=== PATIENT | female | born 1975 | race American Indian/Alaskan Native ===

== ENCOUNTER 2021-10-12 21:11 | Inpatient (IN) | payer MEDICAID ==
[2021-10-12] MEDS ORDERED: VANCOMYCIN 0 MG in SODIUM CHLORIDE 0.9% 500 ML 500 ML IV ONE (22:11)
[2021-10-12] MEDS ORDERED: HYDROmorphone 0.5 MG/0.5 ML INJ IV PRN (22:11)
[2021-10-12] MEDS ORDERED: ACETAMINOPHEN 325 MG TAB PO PRN (22:11)
[2021-10-12] MEDS ORDERED: ACETAMINOPHEN 650 MG RECT SUPP PR ONE (22:23)
--- NOTE | 2021-10-12 22:24 | Emergency Department Report ---
ED Fever HPI - General Chief Complaint: Arrhythmia/Palpitations Stated Complaint: TACHYCARDIA Time Seen by Provider: 10/12/21 22:11 - History of Present Illness Initial Comments: Patient is a 45-year-old female sent from intermediate for evaluation of fever and tachycardia. History of advanced multiple sclerosis and is bedbound. She has several known decubitus ulcers on her sacral region and and hip. 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 ED Review of Systems ROS: Stated complaint: TACHYCARDIA Other details as noted in HPI Comment: Unobtainable due to pts medical conditions ED Past Medical Hx - Social History Smoking Status: Unknown if ever smoked ED Physical Exam - General Limitations: Physical Limitation - Head Head exam: Present: atraumatic, normocephalic - Eye Eye exam: Present: normal appearance, PERRL, EOMI - ENT ENT exam: Present: mucous membranes dry - Respiratory Respiratory exam: Present: normal lung sounds bilaterally. Absent: respiratory distress - Cardiovascular Cardiovascular Exam: Present: normal rhythm, tachycardia, normal heart sounds - GI/Abdominal GI/Abdominal exam: Present: soft. 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 This is reportedly her baseline.) - Skin Skin exam: Present: warm, dry, normal color, other (Sacral decubitus ulcers present with dressings) ED Course Vital Signs 10/12/21 10/12/21 10/12/21 22:05 22:09 22:16 Temperature 103.7 F H Pulse Rate 130 H 124 H Respiratory 24 26 H 25 H Rate Blood Pressure 102/71 Blood Pressure 108/69 [Left] O2 Sat by Pulse 98 96 Oximetry 10/12/21 10/12/21 10/12/21 22:20 22:30 22:46 Temperature Pulse Rate 123 H 128 H Respiratory 22 18 Rate Blood Pressure 102/71 105/71 Blood Pressure [Left] O2 Sat by Pulse 98 96 98 Oximetry 10/12/21 10/12/21 10/12/21 23:00 23:16 23:30 Temperature Pulse Rate 115 H 117 H 108 H Respiratory 20 20 22 Rate Blood Pressure 105/71 96/61 96/61 Blood Pressure [Left] O2 Sat by Pulse 96 97 97 Oximetry 10/12/21 10/13/21 10/13/21 23:46 00:00 00:16 Temperature Pulse Rate 107 H 104 H 106 H Respiratory 20 20 22 Rate Blood Pressure 89/52 89/52 87/50 Blood Pressure [Left] O2 Sat by Pulse 96 97 99 Oximetry 10/13/21 10/13/21 10/13/21 00:30 00:46 01:00 Temperature Pulse Rate 103 H 102 H 98 H Respiratory 19 19 22 Rate Blood Pressure 87/50 92/58 92/58 Blood Pressure [Left] O2 Sat by Pulse 99 99 100 Oximetry 10/13/21 10/13/21 10/13/21 01:02 01:16 01:30 Temperature 98.8 F Pulse Rate 91 H 91 H Respiratory 20 16 Rate Blood Pressure 78/52 78/52 Blood Pressure [Left] O2 Sat by Pulse 98 99 Oximetry 10/13/21 10/13/21 10/13/21 01:46 02:00 02:16 Temperature Pulse Rate 90 87 92 H Respiratory 18 16 20 Rate Blood Pressure 79/49 79/49 76/51 Blood Pressure [Left] O2 Sat by Pulse 100 100 76 L Oximetry 10/13/21 10/13/21 10/13/21 02:30 02:46 02:55 Temperature Pulse Rate 87 89 85 Respiratory 15 21 16 Rate Blood Pressure 76/51 87/54 Blood Pressure 92/58 [Left] O2 Sat by Pulse 100 100 96 Oximetry 10/13/21 10/13/21 10/13/21 03:00 03:16 03:30 Temperature Pulse Rate 82 91 H 78 Respiratory 15 21 17 Rate Blood Pressure 92/58 89/56 89/56 Blood Pressure [Left] O2 Sat by Pulse 100 100 100 Oximetry ED Medical Decision Making - Lab Data Result diagrams: 10/12/21 23:11 10/12/21 23:11 - Medical Decision Making Patient brought in from intermediate for tachycardia and fever. Temp 103 on arrival. She was also tachycardic in the 130s. EKG shows junctional tachycardia. Patient given IV fluids and antibiotics per sepsis protocol. Labs reveal UTI with greater than 182 WBCs, nitrite positive. Patient is allergic to penicillins. She was given IV Levaquin and vancomycin. She was also given rectal Tylenol for her fever. Coronavirus PCR pending. Chest x-ray is negative. Suspect likely UTI as source of sepsis. Will admit to hospitalist. Critical care attestation.: If time is entered above; I have spent that time in minutes in the direct care of this critically ill patient, excluding procedure time. ED Disposition Clinical Impression: Sepsis due to urinary tract infection Disposition: ADMITTED INPATIENT Is pt being admited?: Yes Condition: Stable
[2021-10-12] MEDS ORDERED: VANCOMYCIN/NS 1 GM/250 ML 1 GM/250 ML BAG IV ONE (22:30)
[2021-10-12] MEDS: SODIUM CHLORIDE 0.9% 1000 ML IV SOLN IV ONE (22:39)
--- NOTE | 2021-10-12 22:55 | XRay Report ---
CHEST 1 VIEW 10/12/2021 10:37 PM INDICATION / CLINICAL INFORMATION: Fever, SIRS. COMPARISON: None available. FINDINGS: SUPPORT DEVICES: None. HEART / MEDIASTINUM: No significant abnormality. LUNGS / PLEURA: No significant pulmonary or pleural abnormality. No pneumothorax. ADDITIONAL FINDINGS: No significant additional findings. IMPRESSION: 1. No acute findings. Signer Name: Ezekiel Horan MD Signed: 10/12/2021 10:51 PM Workstation Name: [id number]
[2021-10-12] MEDS ORDERED: VANCOMYCIN PHARMACY TO DOSE IV SCH (23:00)
[2021-10-12 23:25] LABS: Basophils % (Auto) 0.3 % (0.0-1.8); Hematocrit 27.4 % (30.3-42.9); Hemoglobin 8.6 gm/dl (10.1-14.3); Lymphocytes # (Auto) 1.5 K/mm3 (1.2-5.4); Lymphocytes % (Auto) 13.2 % (13.4-35.0); Mean Corpuscular HGB Conc 32 % (30-34); Mean Corpuscular Volume 85 fl (79-97); Monocytes # (Auto) 1.1 K/mm3 (0.0-0.8); Monocytes % (Auto) 9.5 % (0.0-7.3); Platelet Count 603 K/mm3 (140-440); Red Blood Count 3.25 M/mm3 (3.65-5.03)
[2021-10-12 23:32] LABS: Red Cell Distribution Width 22.6 % (13.2-15.2)
[2021-10-12 23:58] LABS: Alanine Aminotransferase 8 units/L (7-56); Albumin 1.7 g/dL (3.9-5); Blood Urea Nitrogen 12 mg/dL (7-17); Calcium 7.3 mg/dL (8.4-10.2); Hemolysis Index 12
[2021-10-13 00:02] LABS: BUN/Creatinine Ratio 60
[2021-10-13] MEDS ORDERED: SODIUM CHLORIDE 0.9% 1000 ML 1,000 ML ONE (00:42)
[2021-10-13] MEDS: SODIUM CHLORIDE 0.9% 1000 ML IV SOLN IV ONE (01:03)
[2021-10-13 02:56] LABS: Bacteria,Urine 4+ /HPF (Negative); Mucus,Urine 3+ /HPF
[2021-10-13 02:57] LABS: Color,Urine Yellow (Yellow); WBC,Urine > 182.0 /HPF (0.0-6.0)
[2021-10-13 02:58] LABS: Bilirubin,Urine Negative (Negative)
[2021-10-13 02:59] LABS: Blood,Urine Moderate (Negative)
[2021-10-13] MEDS ORDERED: ONDANSETRON 4 MG/2 ML INJ IV PRN ×2 (04:25→04:58)
[2021-10-13] MEDS ORDERED: ACETAMINOPHEN 325 MG TAB PO PRN (04:25)
[2021-10-13] MEDS ORDERED: MORPHINE 2 MG/1 ML INJ IV PRN ×2 (04:25→04:58)
[2021-10-13] MEDS ORDERED: MORPHINE 4 MG/1 ML INJ IV PRN (04:58)
[2021-10-13] MEDS ORDERED: ALBUTEROL 2.5 MG/3 ML NEBU IH PRN (04:58)
[2021-10-13] MEDS ORDERED: VANCOMYCIN/NS 1 GM/250 ML 1 GM/250 ML BAG IV SCH (05:00)
--- NOTE | 2021-10-13 05:06 | History and Physical Report ---
History of Present Illness Date of examination: 10/13/21 Date of admission: 10/13/21 Chief complaint: Fever and tachycardia History of present illness: 45-year-old female with history of multiple sclerosis was [facility] from [facility] for evaluation of fever and tachycardia. History of advanced multiple sclerosis and is bedbound. She has several known decubitus ulcers on her sacral region and and hip. 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 Temp 103 on arrival. She was also tachycardic in the 130s. EKG shows junctional tachycardia. Patient given IV fluids and antibiotics per sepsis protocol. Labs reveal UTI with greater than 182 WBCs, nitrite positive. Patient is allergic to penicillins. She was given IV Levaquin and vancomycin. She was also given rectal Tylenol for her fever. Coronavirus PCR pending. Chest x-ray is negative. Suspect likely UTI as source of sepsis. Will admit to hospitalist. Past History Past Medical History: other (Multiple sclerosis bedbound) Past Surgical History: No surgical history Social history: no significant social history Family history: no significant family history Medications and Allergies Allergies Allergy/AdvReac Type Severity Reaction Status Date / Time Penicillins Allergy Unknown Verified 10/12/21 22:16 sulfamethoxazole Allergy Unknown Verified 10/12/21 22:15 [From Bactrim] trimethoprim [From Bactrim] Allergy Unknown Verified 10/12/21 22:15 Active Meds: Active Medications Acetaminophen (Acetaminophen 325 Mg Tab) 650 mg PO Q4H PRN PRN Reason: Pain MILD(1-3)/Fever >100.5/[place] Acetaminophen (Acetaminophen 325 Mg Tab) 650 mg PO Q4H PRN PRN Reason: Pain MILD(1-3)/Fever >100.5/[place] Albuterol (Albuterol 2.5 Mg/3 Ml Nebu) 2.5 mg IH Q3HRT PRN PRN Reason: Shortness Of Breath Albuterol/Ipratropium (Ipratropium/Albuterol Sulfate 3 Ml Ampul.Neb) 1 ampul IH Q6HRT [facility] Enoxaparin Sodium (Enoxaparin 40 Mg/0.4 Ml Inj) 40 mg SUB-Q QDAY [facility] Famotidine (Famotidine 20 Mg/2 Ml Inj) 20 mg IV BID [facility] Hydromorphone HCl (Hydromorphone 0.5 Mg/0.5 Ml Inj) 0.25 mg IV Q4H PRN PRN Reason: Pain, Moderate (4-6) Dextrose/Sodium Chloride (D5/0.45ns) 1,000 mls @ 100 mls/hr IV DIRECT [facility]ED[facility] Vancomycin HCl (Vancomycin/Ns 1 Gm/250 Ml) 1 gm in 250 mls @ 166.667 mls/hr IV Q12H [facility]EDITH; Protocol Levofloxacin/Dextrose (Levaquin 750mg/150ml) 750 mg in 150 mls @ 100 mls/hr IV Q24H [facility]EDITH; Protocol Morphine Sulfate (Morphine 2 Mg/1 Ml Inj) 2 mg IV Q4H PRN PRN Reason: Pain, Moderate (4-6) Morphine Sulfate (Morphine 2 Mg/1 Ml Inj) 2 mg IV Q4H PRN PRN Reason: Pain, Moderate (4-6) Morphine Sulfate (Morphine 4 Mg/1 Ml Inj) 4 mg IV Q4H PRN PRN Reason: Pain , Severe (7-10) Ondansetron HCl (Ondansetron 4 Mg/2 Ml Inj) 4 mg IV Q8H PRN PRN Reason: Nausea And Vomiting Ondansetron HCl (Ondansetron 4 Mg/2 Ml Inj) 4 mg IV Q8H PRN PRN Reason: Nausea And Vomiting Sodium Chloride (Sodium Chloride 0.9% 10 Ml Flush Syringe) 10 ml IV BID [facility]ED[facility] Sodium Chloride (Sodium Chloride 0.9% 10 Ml Flush Syringe) 10 ml IV PRN PRN PRN Reason: LINE FLUSH Sodium Chloride (Sodium Chloride 0.9% 10 Ml Flush Syringe) 10 ml IV BID [facility] Sodium Chloride (Sodium Chloride 0.9% 10 Ml Flush Syringe) 10 ml IV PRN PRN PRN Reason: LINE FLUSH Review of Systems Constitutional: fever, chills, other (Tachycardia) Exam - Constitutional Vitals: Temp Pulse Resp BP Pulse Ox 98.8 F 78 17 89/56 100 10/13/21 01:02 10/13/21 03:30 10/13/21 03:30 10/13/21 03:30 10/13/21 03:30 General appearance: Present: no acute distress, well-nourished - EENT Eyes: Present: PERRL ENT: hearing intact, clear oral mucosa - Neck Neck: Present: supple, normal ROM - Respiratory Respiratory effort: normal Respiratory: bilateral: CTA - Cardiovascular Heart Sounds: Present: S1 & S2. Absent: rub, click - Extremities Extremities: pulses symmetrical, No edema Peripheral Pulses: within normal limits - Abdominal General gastrointestinal: Present: soft, non-tender, non-distended, normal bowel sounds Female genitourinary: Present: normal - Integumentary Integumentary: Present: clear, warm, dry - Musculoskeletal Musculoskeletal: gait normal, strength equal bilaterally - Psychiatric Psychiatric: appropriate mood/affect, intact judgment & insight - Neurologic Neurologic: CNII-XII intact, moves all extremities Results - Labs CBC & Chem 7: 10/12/21 23:11 10/12/21 23:11 Labs: Laboratory Last Values WBC 11.2 K/mm3 (4.5-11.0) H 10/12/21 23:11 RBC 3.25 M/mm3 (3.65-5.03) L 10/12/21 23:11 Hgb 8.6 gm/dl (10.1-14.3) L 10/12/21 23:11 Hct 27.4 % (30.3-42.9) L 10/12/21 23:11 MCV 85 fl (79-97) 10/12/21 23:11 MCH 27 pg (28-32) L 10/12/21 23:11 MCHC 32 % (30-34) 10/12/21 23:11 RDW 22.6 % (13.2-15.2) H 10/12/21 23:11 Plt Count 603 K/mm3 (140-440) H 10/12/21 23:11 Lymph % (Auto) 13.2 % (13.4-35.0) L 10/12/21 23:11 [place] % (Auto) 9.5 % (0.0-7.3) H 10/12/21 23:11 Eos % (Auto) 0.0 % (0.0-4.3) 10/12/21 23:11 Baso % (Auto) 0.3 % (0.0-1.8) 10/12/21 23:11 Lymph # (Auto) 1.5 K/mm3 (1.2-5.4) 10/12/21 23:11 [place] # (Auto) 1.1 K/mm3 (0.0-0.8) H 10/12/21 23:11 Eos # (Auto) 0.0 K/mm3 (0.0-0.4) 10/12/21 23:11 Baso # (Auto) 0.0 K/mm3 (0.0-0.1) 10/12/21 23:11 Seg Neutrophils % 77.0 % (40.0-70.0) H 10/12/21 23:11 Seg Neutrophils # 8.6 K/mm3 (1.8-7.7) H 10/12/21 23:11 APTT 41.0 Sec. (24.2-36.6) H 10/12/21 23:11 Fibrinogen 850 mg/dl (211-480) H 10/12/21 23:11 Sodium 139 mmol/L (137-145) 10/12/21 23:11 Potassium 3.8 mmol/L (3.6-5.0) 10/12/21 23:11 Chloride 101.8 mmol/L (98-107) 10/12/21 23:11 Carbon Dioxide 26 mmol/L (22-30) 10/12/21 23:11 Anion Gap 15 mmol/L 10/12/21 23:11 BUN 12 mg/dL (7-17) 10/12/21 23:11 Creatinine < 0.2 mg/dL (0.6-1.2) L 10/12/21 23:11 Estimated GFR > 60 ml/min 10/12/21 23:11 BUN/Creatinine Ratio 60 % 10/12/21 23:11 Glucose 155 mg/dL (65-100) H 10/12/21 23:11 Lactic Acid 1.70 mmol/L (0.7-2.0) 10/12/21 23:11 Calcium 7.3 mg/dL (8.4-10.2) L 10/12/21 23:11 Total Bilirubin 0.20 mg/dL (0.1-1.2) 10/12/21 23:11 AST 17 units/L (5-40) 10/12/21 23:11 ALT 8 units/L (7-56) 10/12/21 23:11 Alkaline Phosphatase 100 units/L (35-129) 10/12/21 23:11 Total Creatine Kinase 46 units/L (30-135) 10/12/21 23:11 Total Protein 5.6 g/dL (6.3-8.2) L 10/12/21 23:11 Albumin 1.7 g/dL (3.9-5) L 10/12/21 23:11 Albumin/Globulin Ratio 0.4 % 10/12/21 23:11 Urine Color Yellow (Yellow) 10/13/21 02:33 Urine Turbidity Cloudy (Clear) 10/13/21 02:33 Urine pH 6.0 (5.0-7.0) 10/13/21 02:33 Ur Specific [place] 1.030 (1.003-1.030) 10/13/21 02:33 Urine Protein 100 mg/dl mg/dL (Negative) 10/13/21 02:33 Urine Glucose (UA) Negative mg/dL (Negative) 10/13/21 02:33 Urine Ketones Trace mg/dL (Negative) 10/13/21 02:33 Urine Blood Moderate (Negative) A 10/13/21 02:33 Urine Nitrite Positive (Negative) 10/13/21 02:33 Ur Reducing Substances Not Reportable 10/13/21 02:33 Urine Bilirubin Negative (Negative) 10/13/21 02:33 Urine Ictotest Not Reportable 10/13/21 02:33 Urine Urobilinogen 2.0 mg/dL (<2.0) 10/13/21 02:33 Ur Leukocyte Esterase Moderate (Negative) 10/13/21 02:33 Urine WBC (Auto) > 182.0 /HPF (0.0-6.0) H 10/13/21 02:33 Urine RBC (Auto) 61.0 /HPF (0.0-6.0) 10/13/21 02:33 Urine Bacteria (Auto) 4+ /HPF (Negative) 10/13/21 02:33 Urine Mucus 3+ /HPF 10/13/21 02:33 Blood Type A POSITIVE 10/12/21 23:11 Antibody Screen Negative 10/12/21 23:11 Microbiology: Microbiology 10/12/21 23:11 Peripheral/Venous Blood Culture - Preliminary Culture in Progress - Imaging and Cardiology Chest x-ray: report reviewed Assessment and Plan VTE prophylaxis?: Mechanical Plan of care discussed with patient/family: Yes - Patient Problems (1) Sepsis Status: Acute Plan to address problem: Admit the patient to the medical floor. D5 half-normal saline at the rate of 100 cc/h. Levaquin 750 mg IV daily. Vancomycin 1 g IV every 12 hours. Wound care evaluation. Blood culture wound culture. Recheck CBC BMP in the morning (2) UTI (urinary tract infection) Status: Acute Plan to address problem: Levaquin 750 mg IV daily. Vancomycin 1 g IV every 12 hours. Blood culture/ urine culture. Recheck CBC BMP in the morning (3) Multiple sclerosis Status: Acute Plan to address problem: Stable. We will continue the current home medication (4) Decubitus ulcer Status: Acute Plan to address problem: Levaquin 750 mg IV daily. Vancomycin 1 g IV every 12 hours. Wound care evaluation. Blood culture wound culture. Recheck CBC BMP in the morning (5) COVID-19 virus infection Status: Acute Plan to address problem: COVID precaution. Follow COVID PCR. If positive treat accordingly. (6) DVT prophylaxis Status: Acute Plan to address problem: SCD for DVT prophylaxis. Pepcid 20 mg IV every 12 hours for GI prophylaxis. Patient is a full code
[2021-10-13] MEDS ORDERED: VANCOMYCIN PHARMACY TO DOSE IV SCH (06:00)
[2021-10-13] MEDS: IPRATROPIUM/ALBUTEROL SULFATE 3 ML AMPUL.NEB IH SCH ×5 (07:28→20:36)
[2021-10-13] MEDS: D5W/0.45% NACL 1,000 ML IV SCH (08:30)
--- NOTE | 2021-10-13 08:53 | Progress Note ---
Assessment and Plan Assessment and plan: Patient is from senior living -- Sepsis probably secondary to UTI/hip and sacrum decubitus ulcers POA fever, tachycardia, hypotension , leukocytosis UTI per UA Empiric antibiotics, IV fluids, follow cultures ID consult if needed --UTI (urinary tract infection) Levaquin 750 mg IV daily. Vancomycin 1 g IV every 12 hours. Blood culture/ urine culture. Recheck CBC BMP in the morning --History of multiple sclerosis Stable. We will continue the current home medication --Decubitus ulcer[right hip and sacral region] Levaquin 750 mg IV daily. Vancomycin 1 g IV every 12 hours. Wound care evaluation. Blood culture wound culture. Recheck CBC BMP in the morning --COVID-19 virus infection Isolation precautions, PPE protocols COVID precaution. Follow COVID PCR. If positive treat accordingly. --Severe protein calorie malnutrition; Nutrition supplements, nutrition consult Supportive care, treat the underlying cause of malnutrition --severe hypoalbuminemia albumin 1.6 Nutrition supplements, nutrition consult -DVT prophylaxis SCD for prophylaxis. Pepcid 20 mg IV every 12 hours for GI prophylaxis. Patient is a full code Advance care planning; +30 minutes Patient has severe multiple sclerosis, contracted Noncommunicative, cachectic Prolonged care inpatient; 35 minutes Closely monitor the patient and adjust the management as needed Plan of care reviewed with the patient'S nurse History Interval history: 45-year-old female with history of multiple sclerosis was brought from senior living for evaluation of fever and tachycardia. History of advanced multiple sclerosis and is bedbound. She has several known decubitus ulcers on her sacral region and and hip. 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 Temp 103 on arrival. She was also tachycardic in the 130s. EKG shows junctional tachycardia. Patient given IV fluids and antibiotics per sepsis protocol. Labs reveal UTI with greater than 182 WBCs, nitrite positive. Patient is allergic to penicillins. She was given IV Levaquin and vancomycin. She was also given rectal Tylenol for her fever. Coronavirus PCR pending. Chest x-ray is negative. Suspect likely UTI as source of sepsis. Will admit to hospitalist. Hospitalist Physical - Constitutional Vitals: Temp Pulse Resp BP Pulse Ox 98.8 F 94 H 22 92/60 99 10/13/21 01:02 10/13/21 08:16 10/13/21 08:16 10/13/21 08:16 10/13/21 08:16 General appearance: Present: no acute distress, well-nourished, cachectic, disheveled, other (Attracted) - EENT Eyes: Present: PERRL, EOM intact - Neck Neck: Present: supple, normal ROM - Respiratory Respiratory effort: normal Respiratory: bilateral: diminished, negative: rales, wheezing - Cardiovascular Rhythm: regular Heart Sounds: Present: S1 & S2 - Extremities Extremities: abnormal (Contracted) Extremity abnormal: other (Chronic changes) - Abdominal General gastrointestinal: soft, non-tender, non-distended - Integumentary Integumentary: Present: clear, warm - Psychiatric Psychiatric: appropriate mood/affect - Neurologic Neurologic: moves all extremities Results - Labs CBC & Chem 7: 10/14/21 06:11 10/14/21 06:11 Labs: Laboratory Last Values WBC 11.2 K/mm3 (4.5-11.0) H 10/12/21 23:11 RBC 3.25 M/mm3 (3.65-5.03) L 10/12/21 23:11 Hgb 8.6 gm/dl (10.1-14.3) L 10/12/21 23:11 Hct 27.4 % (30.3-42.9) L 10/12/21 23:11 MCV 85 fl (79-97) 10/12/21 23:11 MCH 27 pg (28-32) L 10/12/21 23:11 MCHC 32 % (30-34) 10/12/21 23:11 RDW 22.6 % (13.2-15.2) H 10/12/21 23:11 Plt Count 603 K/mm3 (140-440) H 10/12/21 23:11 Lymph % (Auto) 13.2 % (13.4-35.0) L 10/12/21 23:11 [place] % (Auto) 9.5 % (0.0-7.3) H 10/12/21 23:11 Eos % (Auto) 0.0 % (0.0-4.3) 10/12/21 23:11 Baso % (Auto) 0.3 % (0.0-1.8) 10/12/21 23:11 Lymph # (Auto) 1.5 K/mm3 (1.2-5.4) 10/12/21 23:11 [place] # (Auto) 1.1 K/mm3 (0.0-0.8) H 10/12/21 23:11 Eos # (Auto) 0.0 K/mm3 (0.0-0.4) 10/12/21 23:11 Baso # (Auto) 0.0 K/mm3 (0.0-0.1) 10/12/21 23:11 Seg Neutrophils % 77.0 % (40.0-70.0) H 10/12/21 23:11 Seg Neutrophils # 8.6 K/mm3 (1.8-7.7) H 10/12/21 23:11 APTT 41.0 Sec. (24.2-36.6) H 10/12/21 23:11 Fibrinogen 850 mg/dl (211-480) H 10/12/21 23:11 Sodium 139 mmol/L (137-145) 10/12/21 23:11 Potassium 3.8 mmol/L (3.6-5.0) 10/12/21 23:11 Chloride 101.8 mmol/L (98-107) 10/12/21 23:11 Carbon Dioxide 26 mmol/L (22-30) 10/12/21 23:11 Anion Gap 15 mmol/L 10/12/21 23:11 BUN 12 mg/dL (7-17) 10/12/21 23:11 Creatinine < 0.2 mg/dL (0.6-1.2) L 10/12/21 23:11 Estimated GFR > 60 ml/min 10/12/21 23:11 BUN/Creatinine Ratio 60 % 10/12/21 23:11 Glucose 155 mg/dL (65-100) H 10/12/21 23:11 Lactic Acid 1.70 mmol/L (0.7-2.0) 10/12/21 23:11 Calcium 7.3 mg/dL (8.4-10.2) L 10/12/21 23:11 Total Bilirubin 0.20 mg/dL (0.1-1.2) 10/12/21 23:11 AST 17 units/L (5-40) 10/12/21 23:11 ALT 8 units/L (7-56) 10/12/21 23:11 Alkaline Phosphatase 100 units/L (35-129) 10/12/21 23:11 Total Creatine Kinase 46 units/L (30-135) 10/12/21 23:11 Total Protein 5.6 g/dL (6.3-8.2) L 10/12/21 23:11 Albumin 1.7 g/dL (3.9-5) L 10/12/21 23:11 Albumin/Globulin Ratio 0.4 % 10/12/21 23:11 Urine Color Yellow (Yellow) 10/13/21 02:33 Urine Turbidity Cloudy (Clear) 10/13/21 02:33 Urine pH 6.0 (5.0-7.0) 10/13/21 02:33 Ur Specific [place] 1.030 (1.003-1.030) 10/13/21 02:33 Urine Protein 100 mg/dl mg/dL (Negative) 10/13/21 02:33 Urine Glucose (UA) Negative mg/dL (Negative) 10/13/21 02:33 Urine Ketones Trace mg/dL (Negative) 10/13/21 02:33 Urine Blood Moderate (Negative) A 10/13/21 02:33 Urine Nitrite Positive (Negative) 10/13/21 02:33 Ur Reducing Substances Not Reportable 10/13/21 02:33 Urine Bilirubin Negative (Negative) 10/13/21 02:33 Urine Ictotest Not Reportable 10/13/21 02:33 Urine Urobilinogen 2.0 mg/dL (<2.0) 10/13/21 02:33 Ur Leukocyte Esterase Moderate (Negative) 10/13/21 02:33 Urine WBC (Auto) > 182.0 /HPF (0.0-6.0) H 10/13/21 02:33 Urine RBC (Auto) 61.0 /HPF (0.0-6.0) 10/13/21 02:33 Urine Bacteria (Auto) 4+ /HPF (Negative) 10/13/21 02:33 Urine Mucus 3+ /HPF 10/13/21 02:33 Blood Type A POSITIVE 10/12/21 23:11 Antibody Screen Negative 10/12/21 23:11 Microbiology: Microbiology 10/12/21 23:11 Peripheral/Venous Blood Culture - Preliminary Culture in Progress Active Medications - Current Medications Current Medications: Generic Name Dose Route Start Last Admin Trade Name Freq PRN Reason Stop Dose Admin Acetaminophen 650 mg 10/13/21 04:58 Acetaminophen 325 Mg Tab PO Q4H PRN Pain MILD(1-3)/Fever >100.5/[place] Albuterol 2.5 mg 10/13/21 04:58 Albuterol 2.5 Mg/3 Ml Nebu IH Q3HRT PRN Shortness Of Breath Albuterol/Ipratropium 1 ampul 10/13/21 08:00 10/13/21 08:05 Ipratropium/Albuterol Sulfate 3 Ml Ampul.Neb IH Not Given Q6HRT MEREDITH Enoxaparin Sodium 40 mg 10/13/21 10:00 Enoxaparin 40 Mg/0.4 Ml Inj SUB-Q QDAY [facility] Famotidine 20 mg 10/13/21 10:00 Famotidine 20 Mg/2 Ml Inj IV BID [facility] Dextrose/Sodium Chloride 1,000 mls @ 100 mls/hr 10/13/21 05:00 D5/0.45ns IV DIRECT [facility] Levofloxacin/Dextrose 750 mg in 150 mls @ 100 mls/hr 10/13/21 22:00 Levaquin 750mg/150ml IV Q24H MEREDITH Protocol Vancomycin HCl 750 mg/ Sodium 265 mls @ 166.667 mls/hr 10/13/21 15:00 Chloride IV Q12H [facility] Morphine Sulfate 2 mg 10/13/21 04:58 Morphine 2 Mg/1 Ml Inj IV Q4H PRN Pain, Moderate (4-6) Morphine Sulfate 4 mg 10/13/21 04:58 Morphine 4 Mg/1 Ml Inj IV Q4H PRN Pain , Severe (7-10) Ondansetron HCl 4 mg 10/13/21 04:58 Ondansetron 4 Mg/2 Ml Inj IV Q8H PRN Nausea And Vomiting Sodium Chloride 10 ml 10/13/21 10:00 Sodium Chloride 0.9% 10 Ml Flush Syringe IV BID MEREDITH Sodium Chloride 10 ml 10/13/21 04:58 Sodium Chloride 0.9% 10 Ml Flush Syringe IV PRN PRN LINE FLUSH
[2021-10-13] MEDS: FAMOTIDINE 20 MG/2 ML INJ IV SCH (12:17)
[2021-10-13] MEDS: ENOXAPARIN 40 MG/0.4 ML INJ SUB-Q SCH (12:17)
--- NOTE | 2021-10-13 14:44 | Electrocardiograph Report ---
[facility] Test Date: 2021-10-12 Test Time: 22:22:27 Pat Name: BILL CORRALES Department: Room: [facility] Gender: F Rehab Director: ZOHAIB : 1975 Requested By: CURRY BLANC Order Number: [id number] Reading MD: Amira Núñez Measurements Intervals [place] Rate: 124 P: [place]: QRS: 9 QRSD: 87 T: QT: 321 QTc: 461 Interpretive Statements Junctional tachycardia Anterior infarct, old No previous ECG available for comparison Electronically Signed On 10-13-2021 14:44:39 EDT by Amira Núñez
[2021-10-13] MEDS: VANCOMYCIN 750 MG in SODIUM CHLORIDE 0.9% 250ML 250 ML IV SCH (16:51)
[2021-10-14] MEDS: FAMOTIDINE 20 MG/2 ML INJ IV SCH ×4 (00:09→21:37)
[2021-10-14] MEDS: D5W/0.45% NACL 1,000 ML IV SCH ×2 (00:10→21:00)
[2021-10-14] MEDS: VANCOMYCIN 750 MG in SODIUM CHLORIDE 0.9% 250ML 250 ML IV SCH ×3 (03:00→20:53)
[2021-10-14] MEDS: IPRATROPIUM/ALBUTEROL SULFATE 3 ML AMPUL.NEB IH SCH ×2 (07:31→13:51)
[2021-10-14 08:27] LABS: Blood Urea Nitrogen 7 mg/dL (7-17); Calcium 7.6 mg/dL (8.4-10.2); Hemolysis Index 5
[2021-10-14 08:45] LABS: Basophils % (Auto) 0.4 % (0.0-1.8); Eosinophils % (Auto) 0.1 % (0.0-4.3); Hematocrit 25.4 % (30.3-42.9); Lymphocytes % (Auto) 9.4 % (13.4-35.0); Mean Corpuscular HGB Conc 31 % (30-34); Mean Corpuscular Volume 85 fl (79-97); Mean Platelet Volume 8.5 fl (6-12); Monocytes % (Auto) 6.9 % (0.0-7.3); Platelet Count 589 K/mm3 (140-440); Red Blood Count 2.99 M/mm3 (3.65-5.03); Red Cell Distribution Width 22.7 % (13.2-15.2)
[2021-10-14 08:46] LABS: Lymphocytes # (Auto) 1.1 K/mm3 (1.2-5.4); Monocytes # (Auto) 0.8 K/mm3 (0.0-0.8)
[2021-10-14 08:47] LABS: BUN/Creatinine Ratio 35
--- NOTE | 2021-10-14 09:46 | Progress Note ---
Assessment and Plan Assessment and plan: Patient is from snf -- Sepsis probably secondary to UTI/hip and sacrum decubitus ulcers POA fever, tachycardia, hypotension , leukocytosis UTI per UA Empiric antibiotics, IV fluids, follow cultures ID consult if needed --UTI (urinary tract infection) Levaquin 750 mg IV daily. Vancomycin 1 g IV every 12 hours. Blood culture/ urine culture. Recheck CBC BMP in the morning --History of multiple sclerosis Stable. We will continue the current home medication --Decubitus ulcer[right hip and sacral region] Levaquin 750 mg IV daily. Vancomycin 1 g IV every 12 hours. Wound care evaluation. Blood culture wound culture. Recheck CBC BMP in the morning Follow wound care, surgical consult for wound debridement if needed --COVID-19 virus infection Isolation precautions, PPE protocols COVID precaution. Follow COVID PCR. If positive treat accordingly. --Severe protein calorie malnutrition; Nutrition supplements, nutrition consult Supportive care, treat the underlying cause of malnutrition --severe hypoalbuminemia albumin 1.6 Nutrition supplements, nutrition consult --Full code -DVT prophylaxis SCD for prophylaxis. Pepcid 20 mg IV every 12 hours for GI prophylaxis. Brief history; ; 45-year-old female with history of multiple sclerosis was brought from sn[facility] for evaluation of fever and tachycardia. History of advanced multiple scle rosis and is bedbound. She has several known decubitus ulcers on her sacral region and and hip. 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 Patient has multiple decubitus ulcers on different stages. On antibiotics 10/14/2021; follow cultures, follow wound care, consult surgeon for possible wound debridement if needed History Interval history: I have seen and examined the patient at the bedside Patient is cachectic, emaciated, malnourished No new complaints Vital signs noted Hospitalist Physical - Constitutional Vitals: Temp Pulse Resp BP Pulse Ox 98.3 F 108 H 20 103/62 95 10/14/21 04:39 10/14/21 07:31 10/14/21 07:31 10/14/21 04:39 10/14/21 04:39 General appearance: Present: no acute distress, well-nourished, cachectic, disheveled, other (Attracted) - EENT Eyes: Present: PERRL, EOM intact - Neck Neck: Present: supple, normal ROM - Respiratory Respiratory effort: normal Respiratory: bilateral: diminished, negative: rales, rhonchi, wheezing - Cardiovascular Rhythm: regular Heart Sounds: Present: S1 & S2 - Extremities Extremities: no ischemia, No edema, abnormal (Multiple decubitus ulcers) Extremity abnormal: other (Contracted) - Abdominal General gastrointestinal: soft, non-tender, non-distended, normal bowel sounds - Integumentary Integumentary: Present: clear, warm - Psychiatric Psychiatric: appropriate mood/affect, cooperative - Neurologic Neurologic: moves all extremities (Minimally communicative) Results - Labs CBC & Chem 7: 10/14/21 06:11 10/14/21 06:11 Labs: Laboratory Last Values WBC 12.0 K/mm3 (4.5-11.0) H 10/14/21 06:11 RBC 2.99 M/mm3 (3.65-5.03) L 10/14/21 06:11 Hgb 8.0 gm/dl (10.1-14.3) L 10/14/21 06:11 Hct 25.4 % (30.3-42.9) L 10/14/21 06:11 MCV 85 fl (79-97) 10/14/21 06:11 MCH 27 pg (28-32) L 10/14/21 06:11 MCHC 31 % (30-34) 10/14/21 06:11 RDW 22.7 % (13.2-15.2) H 10/14/21 06:11 Plt Count 589 K/mm3 (140-440) H 10/14/21 06:11 Lymph % (Auto) 9.4 % (13.4-35.0) L 10/14/21 06:11 [place] % (Auto) 6.9 % (0.0-7.3) 10/14/21 06:11 Eos % (Auto) 0.1 % (0.0-4.3) 10/14/21 06:11 Baso % (Auto) 0.4 % (0.0-1.8) 10/14/21 06:11 Lymph # (Auto) 1.1 K/mm3 (1.2-5.4) L 10/14/21 06:11 [place] # (Auto) 0.8 K/mm3 (0.0-0.8) 10/14/21 06:11 Eos # (Auto) 0.0 K/mm3 (0.0-0.4) 10/14/21 06:11 Baso # (Auto) 0.0 K/mm3 (0.0-0.1) 10/14/21 06:11 Seg Neutrophils % 83.2 % (40.0-70.0) H 10/14/21 06:11 Seg Neutrophils # 10.0 K/mm3 (1.8-7.7) H 10/14/21 06:11 APTT 41.0 Sec. (24.2-36.6) H 10/12/21 23:11 Fibrinogen 850 mg/dl (211-480) H 10/12/21 23:11 Sodium 135 mmol/L (137-145) L 10/14/21 06:11 Potassium 3.9 mmol/L (3.6-5.0) 10/14/21 06:11 Chloride 99.1 mmol/L (98-107) 10/14/21 06:11 Carbon Dioxide 25 mmol/L (22-30) 10/14/21 06:11 Anion Gap 15 mmol/L 10/14/21 06:11 BUN 7 mg/dL (7-17) 10/14/21 06:11 Creatinine < 0.2 mg/dL (0.6-1.2) L 10/14/21 06:11 Estimated GFR > 60 ml/min 10/14/21 06:11 BUN/Creatinine Ratio 35 % 10/14/21 06:11 Glucose 86 mg/dL (65-100) 10/14/21 06:11 POC Glucose 122 mg/dL (70-105) H 10/13/21 14:52 Lactic Acid 1.70 mmol/L (0.7-2.0) 10/12/21 23:11 Calcium 7.6 mg/dL (8.4-10.2) L 10/14/21 06:11 Total Bilirubin 0.20 mg/dL (0.1-1.2) 10/12/21 23:11 AST 17 units/L (5-40) 10/12/21 23:11 ALT 8 units/L (7-56) 10/12/21 23:11 Alkaline Phosphatase 100 units/L (35-129) 10/12/21 23:11 Total Creatine Kinase 46 units/L (30-135) 10/12/21 23:11 Total Protein 5.6 g/dL (6.3-8.2) L 10/12/21 23:11 Albumin 1.7 g/dL (3.9-5) L 10/12/21 23:11 Albumin/Globulin Ratio 0.4 % 10/12/21 23:11 Urine Color Yellow (Yellow) 10/13/21 02:33 Urine Turbidity Cloudy (Clear) 10/13/21 02:33 Urine pH 6.0 (5.0-7.0) 10/13/21 02:33 Ur Specific [place] 1.030 (1.003-1.030) 10/13/21 02:33 Urine Protein 100 mg/dl mg/dL (Negative) 10/13/21 02:33 Urine Glucose (UA) Negative mg/dL (Negative) 10/13/21 02:33 Urine Ketones Trace mg/dL (Negative) 10/13/21 02:33 Urine Blood Moderate (Negative) A 10/13/21 02:33 Urine Nitrite Positive (Negative) 10/13/21 02:33 Ur Reducing Substances Not Reportable 10/13/21 02:33 Urine Bilirubin Negative (Negative) 10/13/21 02:33 Urine Ictotest Not Reportable 10/13/21 02:33 Urine Urobilinogen 2.0 mg/dL (<2.0) 10/13/21 02:33 Ur Leukocyte Esterase Moderate (Negative) 10/13/21 02:33 Urine WBC (Auto) > 182.0 /HPF (0.0-6.0) H 10/13/21 02:33 Urine RBC (Auto) 61.0 /HPF (0.0-6.0) 10/13/21 02:33 Urine Bacteria (Auto) 4+ /HPF (Negative) 10/13/21 02:33 Urine Mucus 3+ /HPF 10/13/21 02:33 Blood Type A POSITIVE 10/12/21 23:11 Antibody Screen Negative 10/12/21 23:11 Microbiology: Microbiology 10/12/21 23:11 Peripheral/Venous Blood Culture - Preliminary Rangel/IV: Voiding Method Indwelling Catheter Active Medications - Current Medications Current Medications: Generic Name Dose Route Start Last Admin Trade Name Freq PRN Reason Stop Dose Admin Acetaminophen 650 mg 10/13/21 04:58 Acetaminophen 325 Mg Tab PO Q4H PRN Pain MILD(1-3)/Fever >100.5/RICO Albuterol 2.5 mg 10/13/21 04:58 Albuterol 2.5 Mg/3 Ml Nebu IH Q3HRT PRN Shortness Of Breath Albuterol/Ipratropium 1 ampul 10/14/21 08:00 10/14/21 07:31 Ipratropium/Albuterol Sulfate 3 Ml Ampul.Neb IH 1 ampul TIDRT MEREDITH Administration Enoxaparin Sodium 40 mg 10/13/21 10:00 10/13/21 12:17 Enoxaparin 40 Mg/0.4 Ml Inj SUB-Q 40 mg QDAY MEREDITH Administration Famotidine 20 mg 10/13/21 10:00 10/14/21 00:09 Famotidine 20 Mg/2 Ml Inj IV 20 mg BID MEREDITH Administration Dextrose/Sodium Chloride 1,000 mls @ 100 mls/hr 10/13/21 05:00 10/14/21 00:10 D5/0.45ns IV 100 mls/hr DIRECT MEREDITH Administration Levofloxacin/Dextrose 750 mg in 150 mls @ 100 mls/hr 10/13/21 22:00 10/14/21 00:09 Levaquin 750mg/150ml IV 100 mls/hr Q24H MEREDITH Administration Protocol Vancomycin HCl 750 mg/ Sodium 265 mls @ 166.667 mls/hr 10/13/21 15:00 10/14/21 03:00 Chloride IV Not Given Q12H MEREDITH Morphine Sulfate 2 mg 10/13/21 04:58 Morphine 2 Mg/1 Ml Inj IV Q4H PRN Pain, Moderate (4-6) Morphine Sulfate 4 mg 10/13/21 04:58 Morphine 4 Mg/1 Ml Inj IV Q4H PRN Pain , Severe (7-10) Ondansetron HCl 4 mg 10/13/21 04:58 Ondansetron 4 Mg/2 Ml Inj IV Q8H PRN Nausea And Vomiting Sodium Chloride 10 ml 10/13/21 10:00 10/14/21 00:10 Sodium Chloride 0.9% 10 Ml Flush Syringe IV 10 ml BID MEREDITH Administration Sodium Chloride 10 ml 10/13/21 04:58 Sodium Chloride 0.9% 10 Ml Flush Syringe IV PRN PRN LINE FLUSH Nutrition/Malnutrition Assess - Dietary Evaluation Nutrition/Malnutrition Findings: Nutrition Notes Start: 10/13/21 10:06 Freq: Status: Active Protocol: Document 10/13/21 10:06 WALT (Rec: 10/13/21 10:14 WALT [id number]) Nutrition Notes Need for Assessment generated from: MD Order,Education Initial or Follow up Assessment Current Diagnosis Decubitus(Pressure Ulcer), Sepsis Other Pertinent Diagnosis UTI, MS, r/o COVID-19 Current Diet NPO Labs/Tests Reviewed Pertinent Medications D51/2NS at 100ml/hr Height 5 ft 8 in Weight 45.359 kg [place] Body Weight (kg) 63.63 BMI 15.2 Weight Status Underweight Subjective/Other Information RD consulted for diet education. Pt from a NH, is non-verbal and mentally delayed. Pt not appropriate for diet education. [employer] evaluation ordered. Pt in ED at this time. Burn Absent Trauma Absent Skin Integrity/Comment Multiple decubitus ulcers present #1 Nutrition Diagnosis Underweight Etiology chronic illness As Evidenced by Signs and Symptoms BMI 15.2 Is patient on ventilator? No Is Patient Ambulatory and/or Out of Bed No REE-([place]-confined to bed) 1392.096 Kcal/Kg value to use for calculation 40 Approximate Energy Requirements Using 1814 kcal/Kg Calculation Used for Recommendations Kcal/kg Additional Notes Pro needs 1.25-1.5g/k-68g /day Fluid needs 1ml/kcal Nutrition Intervention Change Diet Order: Advance diet when medically feasible Goal #1 Diet advancement to meet nutrient needs Goal #2 Wt maintenance and/or gain Anticipated Discharge Needs: Unable to identify at this time Follow-Up By: 10/14/21 Additional Comments F/U: [employer] evaluation, diet advancement/POC
[2021-10-14] MEDS: ENOXAPARIN 40 MG/0.4 ML INJ SUB-Q SCH (11:27)
[2021-10-14] MEDS ORDERED: ALBUTEROL 8.5 GM MDI INHALATION IH PRN (20:00)
[2021-10-14] MEDS: ACETAMINOPHEN 325 MG TAB PO PRN (23:44)
[2021-10-15 07:16] LABS: Basophils # (Auto) 0.1 K/mm3 (0.0-0.1); Basophils % (Auto) 0.8 % (0.0-1.8); Eosinophils % (Auto) 0.1 % (0.0-4.3); Hematocrit 29.9 % (30.3-42.9); Hemoglobin 9.2 gm/dl (10.1-14.3); Lymphocytes # (Auto) 1.4 K/mm3 (1.2-5.4); Lymphocytes % (Auto) 20.6 % (13.4-35.0); Mean Corpuscular HGB Conc 31 % (30-34); Mean Corpuscular Volume 86 fl (79-97); Monocytes # (Auto) 0.3 K/mm3 (0.0-0.8); Monocytes % (Auto) 4.4 % (0.0-7.3); Platelet Count 603 K/mm3 (140-440); Red Blood Count 3.48 M/mm3 (3.65-5.03); Red Cell Distribution Width 22.3 % (13.2-15.2)
[2021-10-15 07:30] LABS: Blood Urea Nitrogen 5 mg/dL (7-17); Hemolysis Index 8
[2021-10-15 07:36] LABS: BUN/Creatinine Ratio 25
--- NOTE | 2021-10-15 09:14 | Progress Note ---
Assessment and Plan 45-year-old female with history of multiple sclerosis was brought from senior living for evaluation of fever and tachycardia. History of advanced multiple sclerosis and is bedbound. She has several known decubitus ulcers on her sacral region and and hip. 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 Patient has multiple decubitus ulcers on different stages. On antibiotics 10/14/2021; follow cultures, follow wound care, consult surgeon for possible wound debridement if needed 10/15: Patient tested positive for COVID-19 yesterday. Patient spiking temp, cont vanc and levaquin. consult ID, order repeat blood cx Assessment and plan: -- Sepsis probably secondary to UTI/hip and sacrum decubitus ulcers POA fever, tachycardia, hypotension , leukocytosis UTI per UA Empiric antibiotics, IV fluids, follow cultures ID consult if needed --UTI (urinary tract infection) Levaquin 750 mg IV daily. Vancomycin 1 g IV every 12 hours. Blood culture/ urine culture. Recheck CBC BMP in the morning --History of multiple sclerosis Stable. We will continue the current home medication --Decubitus ulcer[right hip and sacral region] Levaquin 750 mg IV daily. Vancomycin 1 g IV every 12 hours. Wound care evaluation. Blood culture wound culture. Recheck CBC BMP in the morning Follow wound care, surgical consult for wound debridement if needed --COVID-19 virus infection Isolation precautions, PPE protocols COVID precaution. Follow COVID PCR. If positive treat accordingly. --Severe protein calorie malnutrition; Nutrition supplements, nutrition consult Supportive care, treat the underlying cause of malnutrition --severe hypoalbuminemia albumin 1.6 Nutrition supplements, nutrition consult --Full code -DVT prophylaxis SCD for prophylaxis. Pepcid 20 mg IV every 12 hours for GI prophylaxis. Subjective Date of service: 10/15/21 Interval history: Seen and examined the patient at the bedside Patient is cachectic, emaciated, malnourished No new complaints Vital signs noted Objective - Exam Narrative Exam: General appearance: Present: no acute distress, well-nourished, cachectic, disheveled, other (Attracted) - EENT Eyes: Present: PERRL, EOM intact - Neck Neck: Present: supple, normal ROM - Respiratory Respiratory effort: normal Respiratory: bilateral: diminished, negative: rales, rhonchi, wheezing - Cardiovascular Rhythm: regular Heart Sounds: Present: S1 & S2 - Extremities Extremities: no ischemia, No edema, abnormal (Multiple decubitus ulcers) Extremity abnormal: other (Contracted) - Abdominal General gastrointestinal: soft, non-tender, non-distended, normal bowel sounds - Integumentary Integumentary: Present: clear, warm - Psychiatric Psychiatric: appropriate mood/affect, cooperative - Neurologic Neurologic: moves all extremities (Minimally communicative) - Constitutional Vitals: Vital Signs - 12hr 10/14/21 10/14/21 10/15/21 23:07 23:34 05:56 Temperature 102.0 F H 97.5 F L Pulse Rate 112 H 79 Respiratory 16 16 Rate Blood Pressure 94/59 87/55 O2 Sat by Pulse 99 97 96 Oximetry - Labs CBC & Chem 7: 10/15/21 06:55 10/17/21 07:44 Labs: Abnormal lab results 10/14/21 10/15/21 10/15/21 Range/Units 10:35 06:55 06:55 RBC 3.48 L (3.65-5.03) M/mm3 Hgb 9.2 L (10.1-14.3) gm/dl Hct 29.9 L (30.3-42.9) % MCH 26 L (28-32) pg RDW 22.3 H (13.2-15.2) % Plt Count 603 H (140-440) K/mm3 Seg Neutrophils % 74.1 H (40.0-70.0) % Potassium 3.2 L (3.6-5.0) mmol/L BUN 5 L (7-17) mg/dL Creatinine < 0.2 L (0.6-1.2) mg/dL Calcium 8.0 L (8.4-10.2) mg/dL Coronavirus (PCR) Positive A (Negative)
[2021-10-15] MEDS: VANCOMYCIN 750 MG in SODIUM CHLORIDE 0.9% 250ML 250 ML IV SCH ×2 (10:13→21:10)
[2021-10-15] MEDS: ENOXAPARIN 40 MG/0.4 ML INJ SUB-Q SCH (10:13)
[2021-10-15] MEDS: FAMOTIDINE 20 MG/2 ML INJ IV SCH ×2 (10:14→21:10)
--- NOTE | 2021-10-15 10:53 | Consultation ---
History of Present Illness - Reason for Consult Consult date: 10/15/21 Staph bacteremia Requesting physician: MIRANDA SUAZO - History of Present Illness The patient is a 45-year-old female mentally challenged, multiple sclerosis, bedbound, long term resident was sent due to fever and tachycardia. Upon evaluation, had a fever of 103 F, labs showed mild leukocytosis. UA showed significant pyuria. MRSA nasal PCR negative. Tested positive for COVID-19. Blood cultures turn positive for Staph aureus, hence infectious diseases was consulted. Continues to have some fevers. She is otherwise on room air. She has multiple decubitus ulcers involving her right foot, left hip, right hip, sacrum, left foot. Chest x-ray did not reveal any pneumonia. Lying in bed, comfortable. Review of Systems: Limited historian. Past History Past Medical History: other (Multiple sclerosis bedbound) Past Surgical History: No surgical history Social history: no significant social history Family history: no significant family history Medications and Allergies Allergies Allergy/AdvReac Type Severity Reaction Status Date / Time Penicillins Allergy Unknown Verified 10/12/21 22:16 sulfamethoxazole Allergy Unknown Verified 10/12/21 22:15 [From Bactrim] trimethoprim [From Bactrim] Allergy Unknown Verified 10/12/21 22:15 Active Meds: Active Medications Acetaminophen (Acetaminophen 325 Mg Tab) 650 mg PO Q4H PRN PRN Reason: Pain MILD(1-3)/Fever >100.5/RICO Last Admin: 10/14/21 23:44 Dose: 650 mg Albuterol (Albuterol 8.5 Gm Mdi Inhalation) 2 puff IH Q4HRT PRN PRN Reason: Shortness Of Breath Enoxaparin Sodium (Enoxaparin 40 Mg/0.4 Ml Inj) 40 mg SUB-Q QDAY [facility] Last Admin: 10/15/21 10:13 Dose: 40 mg Famotidine (Famotidine 20 Mg/2 Ml Inj) 20 mg IV BID [facility] Last Admin: 10/15/21 10:14 Dose: 20 mg Dextrose/Sodium Chloride (D5/0.45ns) 1,000 mls @ 100 mls/hr IV DIRECT [facility] Last Admin: 10/14/21 21:00 Dose: 100 mls/hr Levofloxacin/Dextrose (Levaquin 750mg/150ml) 750 mg in 150 mls @ 100 mls/hr IV Q24H [facility]; Protocol Last Admin: 10/14/21 22:15 Dose: 100 mls/hr Vancomycin HCl 750 mg/ Sodium (Chloride) 265 mls @ 166.667 mls/hr IV Q12H [facility] Last Admin: 10/15/21 10:13 Dose: 166.667 mls/hr Morphine Sulfate (Morphine 2 Mg/1 Ml Inj) 2 mg IV Q4H PRN PRN Reason: Pain, Moderate (4-6) Morphine Sulfate (Morphine 4 Mg/1 Ml Inj) 4 mg IV Q4H PRN PRN Reason: Pain , Severe (7-10) Ondansetron HCl (Ondansetron 4 Mg/2 Ml Inj) 4 mg IV Q8H PRN PRN Reason: Nausea And Vomiting Sodium Chloride (Sodium Chloride 0.9% 10 Ml Flush Syringe) 10 ml IV BID [facility] Last Admin: 10/15/21 10:14 Dose: 10 ml Sodium Chloride (Sodium Chloride 0.9% 10 Ml Flush Syringe) 10 ml IV PRN PRN PRN Reason: LINE FLUSH Physical Examination - Physical Exam Narrative exam: Physical Exam: Constitutional: Alert, cooperative. No acute distress. Cachexia. Head, Ears, Nose: Normocephalic, atraumatic. External ears, nose normal Eyes: Conjunctivae/corneas clear. No icterus. No ptosis. Neck: Supple, no meningeal signs Cardiovascular: S1, S2 + Respiratory: Good air entry, clear to auscultation bilaterally GI: Soft, non-tender; bowel sounds normal. No peritoneal signs Musculoskeletal: Multiple decubiti, contractures + Skin: No rash or abscess. Wounds + Hem/Lymphatic: No palpable cervical or supraclavicular nodes. No lymphangitis Psych: Calm, no agitation Neurological: Awake, alert, oriented - Constitutional Vitals: Vital Signs Temp Pulse Resp BP Pulse Ox 97.7 F 86 18 100/61 99 10/15/21 10:24 10/15/21 10:24 10/15/21 10:24 10/15/21 10:24 10/15/21 10:24 Temperature -Last 24 Hours Temperature 97.7 F Temperature 97.5 F Temperature 102.0 F Temperature 100.0 F Temperature 99.0 F Results - Labs CBC & Chem 7: 10/15/21 06:55 10/15/21 06:55 Labs: Abnormal lab results 10/14/21 10/15/21 10/15/21 Range/Units 10:35 06:55 06:55 RBC 3.48 L (3.65-5.03) M/mm3 Hgb 9.2 L (10.1-14.3) gm/dl Hct 29.9 L (30.3-42.9) % MCH 26 L (28-32) pg RDW 22.3 H (13.2-15.2) % Plt Count 603 H (140-440) K/mm3 Seg Neutrophils % 74.1 H (40.0-70.0) % Potassium 3.2 L (3.6-5.0) mmol/L BUN 5 L (7-17) mg/dL Creatinine < 0.2 L (0.6-1.2) mg/dL Calcium 8.0 L (8.4-10.2) mg/dL Coronavirus (PCR) Positive A (Negative) - Imaging and Cardiology Chest x-ray: report reviewed, image reviewed (no pneumonia) Assessment and Plan Cultures: COVID-19 PCR: Positive 10/12/2021 blood culture: Staph aureus A/P: 45-year-old female mentally challenged, multiple sclerosis, bedbound, long term resident was sent due to fever and tachycardia: #Sepsis: Multifactorial. Present on admission. Secondary to UTI, Staphylococcus aureus bacteremia, multiple decubiti. #Staph aureus bacteremia: Source could be her decubiti. #UTI: Continue levofloxacin for now. #Multiple decubitus ulcers: Bedbound status. Continue wound care. #Asymptomatic COVID-19: Remains on room air. #Severe protein calorie malnutrition #Reactive thrombocytosis Recs: -Continue levofloxacin for now, f/u urine culture -Exchange indwelling Rangel if not done on admission -Repeat blood cultures ordered, TTE ordered -Continue IV vancomycin -Wound care and offloading as possible Guadalupe Sue MD, FACP, [facility] O: [phone] F: [phone] C: [phone]
[2021-10-15] MEDS: D5W/0.45% NACL 1,000 ML IV SCH (17:04)
[2021-10-16] MEDS ORDERED: POTASSIUM CHLORIDE ER 20 MEQ TAB PO NR (09:30)
[2021-10-16] MEDS: VANCOMYCIN 750 MG in SODIUM CHLORIDE 0.9% 250ML 250 ML IV SCH (10:03)
[2021-10-16] MEDS: ENOXAPARIN 40 MG/0.4 ML INJ SUB-Q SCH (10:08)
[2021-10-16] MEDS: FAMOTIDINE 20 MG/2 ML INJ IV SCH ×2 (10:08→21:43)
--- NOTE | 2021-10-16 10:54 | Progress Note ---
Assessment and Plan Cultures: COVID-19 PCR: Positive 10/12/2021 blood culture: MSSA 10/15/2021 blood culture: In process A/P: 45-year-old female mentally challenged, multiple sclerosis, bedbound, [facility] resident was sent due to fever and tachycardia: #Sepsis: Multifactorial. Present on admission. Secondary to UTI, Staphylococcus aureus bacteremia, multiple decubiti. #Staph aureus bacteremia: Source could be her decubiti. TTE did not reveal any obvious vegetations on the valves. Showed possible PFO #UTI: Continue levofloxacin for now. #Multiple decubitus ulcers: Bedbound status. Continue wound care. #Asymptomatic COVID-19: Remains on room air. #Severe protein calorie malnutrition #Reactive thrombocytosis Recs: -vancomycin d/micheline. Switched to IV Ancef 2 g every 12 hours -Continue levofloxacin for now, f/u urine culture -Exchange indwelling Rangel if not done on admission -f/u repeat blood cultures, if positive, would probably need a PEDRITO -Wound care and offloading as possible Guadalupe Sue MD, FACP, [facility] O: [phone] F: [phone] C: [phone] Subjective Date of service: 10/16/21 Interval history: Afebrile. On room air. Objective - Exam Narrative Exam: Physical Exam: Constitutional: Alert, cooperative. No acute distress. Cachexia. Head, Ears, Nose: Normocephalic, atraumatic. External ears, nose normal Eyes: Conjunctivae/corneas clear. No icterus. No ptosis. Neck: Supple, no meningeal signs Cardiovascular: S1, S2 + Respiratory: Good air entry, clear to auscultation bilaterally GI: Soft, non-tender; bowel sounds normal. No peritoneal signs Musculoskeletal: Multiple decubiti, contractures + Skin: No rash or abscess. Wounds + Hem/Lymphatic: No palpable cervical or supraclavicular nodes. No lymphangitis Psych: Calm, no agitation Neurological: Awake, alert, oriented - Constitutional Vitals: Vital Signs Temp Pulse Resp BP Pulse Ox 97.5 F L 100 H 18 154/85 98 10/16/21 05:00 10/16/21 06:13 10/16/21 06:13 10/16/21 06:13 10/16/21 06:13 Temperature -Last 24 Hours Temperature 97.5 F Temperature 99.0 F - Labs CBC & Chem 7: 10/15/21 06:55 10/15/21 06:55
[2021-10-16] MEDS: D5W/0.45% NACL 1,000 ML IV SCH (14:05)
--- NOTE | 2021-10-16 15:22 | Progress Note ---
Assessment and Plan 45-year-old female with history of multiple sclerosis [facility] evaluation of fever and tachycardia. History of advanced multiple sclerosis and is bedbound. She has several known decubitus ulcers on her sacral region and and hip. 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 Patient has multiple decubitus ulcers on different stages. On antibiotics 10/14; follow cultures, follow wound care, consult surgeon for possible wound debridement if needed 10/15: Patient tested positive for COVID-19 yesterday. Patient spiking temp, cont vanc and levaquin. consult ID, order repeat blood cx 10/16: ordered TTE, repeat blood cx pending. supportive care for covid 19. -vancomycin d/micheline. Switched to IV Ancef 2 g every 12 hours. Continue levofloxacin for now, f/u urine culture -f/u repeat blood cultures, if positive, would probably need a PEDRITO Assessment and plan: -- Sepsis probably secondary to UTI/hip and sacrum decubitus ulcers POA fever, tachycardia, hypotension , leukocytosis UTI per UA Empiric antibiotics, IV fluids, follow cultures ID consult if needed --UTI (urinary tract infection) Levaquin 750 mg IV daily. changed vanco to ancef Blood culture/ urine culture. Recheck CBC BMP in the morning --History of multiple sclerosis Stable. We will continue the current home medication --Decubitus ulcer[right hip and sacral region] Levaquin 750 mg IV daily. Vancomycin 1 g IV every 12 hours. Wound care evaluation. Blood culture wound culture. Recheck CBC BMP in the morning Follow wound care, surgical consult for wound debridement if needed --COVID-19 virus infection Isolation precautions, PPE protocols COVID precaution. Positive COVID PCR. supportive care as patient on RA --Severe protein calorie malnutrition; Nutrition supplements, nutrition consult Supportive care, treat the underlying cause of malnutrition --severe hypoalbuminemia albumin 1.6 Nutrition supplements, nutrition consult --Full code -DVT prophylaxis SCD for prophylaxis. Pepcid 20 mg IV every 12 hours for GI prophylaxis. Subjective Date of service: 10/16/21 Interval history: Seen and examined the patient at the bedside Patient is cachectic, emaciated, malnourished No new complaints Vital signs noted She is tolerating diet Objective - Exam Narrative Exam: General appearance: Present: no acute distress, well-nourished, cachectic, disheveled, other (Attracted) - EENT Eyes: Present: PERRL, EOM intact - Neck Neck: Present: supple, normal ROM - Respiratory Respiratory effort: normal Respiratory: bilateral: diminished, negative: rales, rhonchi, wheezing - Cardiovascular Rhythm: regular Heart Sounds: Present: S1 & S2 - Extremities Extremities: no ischemia, No edema, abnormal (Multiple decubitus ulcers) Extremity abnormal: other (Contracted) - Abdominal General gastrointestinal: soft, non-tender, non-distended, normal bowel sounds - Integumentary Integumentary: Present: clear, warm - Psychiatric Psychiatric: appropriate mood/affect, cooperative - Neurologic Neurologic: moves all extremities (Minimally communicative) - Constitutional Vitals: Vital Signs - 12hr 10/16/21 10/16/21 10/16/21 05:00 06:13 13:15 Temperature 97.5 F L Pulse Rate 100 H Respiratory 18 Rate Blood Pressure 154/85 O2 Sat by Pulse 98 99 Oximetry - Labs CBC & Chem 7: 10/15/21 06:55 10/17/21 07:44
[2021-10-17] MEDS: ACETAMINOPHEN 325 MG TAB PO PRN (00:16)
--- NOTE | 2021-10-17 07:23 | Progress Note ---
Assessment and Plan Cultures: COVID-19 PCR: Positive 10/12/2021 blood culture: MSSA 10/15/2021 blood culture: no growth so far A/P: 45-year-old female mentally challenged, multiple sclerosis, bedbound, [facility] resident was sent due to fever and tachycardia: #Sepsis: Multifactorial. Present on admission. Secondary to UTI, Staphylococcus aureus bacteremia, multiple decubiti. #Staph aureus bacteremia: Source could be her decubiti. TTE did not reveal any obvious vegetations on the valves. Showed possible PFO #UTI: Continue levofloxacin for now. #Multiple decubitus ulcers: Bedbound status. Continue wound care. #Asymptomatic COVID-19: Remains on room air. #Severe protein calorie malnutrition #Reactive thrombocytosis Recs: -continue IV Ancef 2 g every 12 hours -Continue levofloxacin, D5 of 5, f/u urine culture -f/u repeat blood cultures, if positive, would need a PEDRITO. Otherwise will set up IV Ancef x 4 weeks ending 11/12/2021 -will need negative blood cultures at 48 hours before [address] a PICC line -Wound care and offloading as possible -CM orders placed in preparation for her discharge Guadalupe Sue MD, FACP, [facility] O: [phone] F: [phone] C: [phone] Subjective Date of service: 10/17/21 Interval history: T-max 99.8 F yesterday night. Remains on room air. Resting calmly in bed. Objective - Exam Narrative Exam: Physical Exam: Constitutional: Alert, cooperative. No acute distress. Cachexia. Head, Ears, Nose: Normocephalic, atraumatic. External ears, nose normal Eyes: Conjunctivae/corneas clear. No icterus. No ptosis. Neck: Supple, no meningeal signs Cardiovascular: S1, S2 + Respiratory: Good air entry, clear to auscultation bilaterally GI: Soft, non-tender; bowel sounds normal. No peritoneal signs Musculoskeletal: Multiple decubiti, contractures + Skin: No rash or abscess. Wounds + Hem/Lymphatic: No palpable cervical or supraclavicular nodes. No lymphangitis Psych: Calm, no agitation Neurological: Awake, alert - Constitutional Vitals: Vital Signs Temp Pulse Resp BP Pulse Ox 97.8 F 82 18 86/52 98 10/17/21 05:29 10/17/21 05:29 10/17/21 05:29 10/17/21 05:30 10/17/21 05:29 Temperature -Last 24 Hours Temperature 97.8 F Temperature 99.8 F - Labs CBC & Chem 7: 10/15/21 06:55 10/15/21 06:55
[2021-10-17 08:09] LABS: Blood Urea Nitrogen 6 mg/dL (7-17); Calcium 8.1 mg/dL (8.4-10.2); Hemolysis Index 0
[2021-10-17 08:10] LABS: BUN/Creatinine Ratio 30
[2021-10-17] MEDS: ENOXAPARIN 40 MG/0.4 ML INJ SUB-Q SCH (12:20)
[2021-10-17] MEDS: FAMOTIDINE 20 MG/2 ML INJ IV SCH ×2 (12:20→22:21)
--- NOTE | 2021-10-17 16:19 | Progress Note ---
Assessment and Plan 45-year-old female with history of multiple sclerosis was brought from shelter for evaluation of fever and tachycardia. History of advanced multiple sclerosis and is bedbound. She has several known decubitus ulcers on her sacral region and and hip. 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 Patient has multiple decubitus ulcers on different stages. On antibiotics 10/14; follow cultures, follow wound care, consult surgeon for possible wound debridement if needed 10/15: Patient tested positive for COVID-19 yesterday. Patient spiking temp, cont vanc and levaquin. consult ID, order repeat blood cx 10/16: ordered TTE, repeat blood cx pending. supportive care for covid 19. -vancomycin d/micheline. Switched to IV Ancef 2 g every 12 hours. Continue levofloxacin for now, f/u urine culture -f/u repeat blood cultures, if positive, would probably need a PEDRITO 10/17: -continue IV Ancef 2 g every 12 hours -Continue levofloxacin, D5 of 5, f/u urine culture -f/u repeat blood cultures negative pt will need IV Ancef x 4 weeks ending 11/12/2021 -will need negative blood cultures at 48 hours before placing a PICC line Assessment and plan: -- Sepsis probably secondary to UTI/hip and sacrum decubitus ulcers POA fever, tachycardia, hypotension , leukocytosis UTI per UA Empiric antibiotics, IV fluids, follow cultures ID consult if needed --UTI (urinary tract infection) Levaquin 750 mg IV daily. changed vanco to ancef Blood culture/ urine culture. Recheck CBC BMP in the morning --History of multiple sclerosis Stable. We will continue the current home medication --Decubitus ulcer[right hip and sacral region] Levaquin 750 mg IV daily. Vancomycin 1 g IV every 12 hours. Wound care evaluation. Blood culture wound culture. Recheck CBC BMP in the morning Follow wound care, surgical consult for wound debridement if needed --COVID-19 virus infection Isolation precautions, PPE protocols COVID precaution. Positive COVID PCR. supportive care as patient on RA --Severe protein calorie malnutrition; Nutrition supplements, nutrition consult Supportive care, treat the underlying cause of malnutrition --severe hypoalbuminemia albumin 1.6 Nutrition supplements, nutrition consult --Full code -DVT prophylaxis SCD for prophylaxis. Pepcid 20 mg IV every 12 hours for GI prophylaxis. Subjective Date of service: 10/17/21 Interval history: Seen and examined the patient at the bedside Patient is cachectic, emaciated, malnourished No new complaints Vital signs noted She is tolerating diet Objective - Exam Narrative Exam: General appearance: Present: no acute distress, well-nourished, cachectic, disheveled, other (Attracted) - EENT Eyes: Present: PERRL, EOM intact - Neck Neck: Present: supple, normal ROM - Respiratory Respiratory effort: normal Respiratory: bilateral: diminished, negative: rales, rhonchi, wheezing - Cardiovascular Rhythm: regular Heart Sounds: Present: S1 & S2 - Extremities Extremities: no ischemia, No edema, abnormal (Multiple decubitus ulcers) Extremity abnormal: other (Contracted) - Abdominal General gastrointestinal: soft, non-tender, non-distended, normal bowel sounds - Integumentary Integumentary: Present: clear, warm - Psychiatric Psychiatric: appropriate mood/affect, cooperative - Neurologic Neurologic: moves all extremities (Minimally communicative) - Constitutional Vitals: Vital Signs - 12hr 10/17/21 10/17/21 10/17/21 05:29 05:30 08:19 Temperature 97.8 F Pulse Rate 82 Respiratory 18 Rate Blood Pressure 86/52 Blood Pressure 84/48 [Left] O2 Sat by Pulse 98 99 Oximetry 10/17/21 11:05 Temperature 97.9 F Pulse Rate 83 Respiratory 16 Rate Blood Pressure 95/51 Blood Pressure [Left] O2 Sat by Pulse 99 Oximetry - Labs CBC & Chem 7: 10/15/21 06:55 10/17/21 07:44 Labs: Abnormal lab results 10/17/21 Range/Units 07:44 Carbon Dioxide 31 H (22-30) mmol/L BUN 6 L (7-17) mg/dL Creatinine < 0.2 L (0.6-1.2) mg/dL Calcium 8.1 L (8.4-10.2) mg/dL
[2021-10-17] MEDS: D5W/0.45% NACL 1,000 ML IV SCH (17:53)
[2021-10-18] MEDS: ACETAMINOPHEN 325 MG TAB PO PRN (05:14)
--- NOTE | 2021-10-18 08:37 | Progress Note ---
Assessment and Plan Assessment and plan: -- Sepsis probably secondary to UTI/hip and sacrum decubitus ulcers POA fever, tachycardia, hypotension , leukocytosis UTI per UA Empiric antibiotics, IV fluids, follow cultures ID consult appreciated IV antibiotics till 11/12/2021 IV Ancef and vancomycin Urine shows staph aureus sensitive to vancomycin Defer to ID whether vancomycin is necessary and Ancef to continue. --UTI (urinary tract infection) Discontinue Levaquin Urine shows staph aureus resistant to Levaquin but sensitive to Bactrim and tetracycline oxacillin. --History of multiple sclerosis Stable. We will continue the current home medication --Decubitus ulcer[right hip and sacral region] Levaquin 750 mg IV daily. Vancomycin 1 g IV every 12 hours. Wound care evaluation. Blood culture wound culture. Recheck CBC BMP in the [facility] Follow wound care, surgical consult for wound debridement if needed --COVID-19 virus infection Isolation precautions, PPE protocols COVID precaution. Positive COVID PCR. supportive care as patient on RA --Severe protein calorie malnutrition; Nutrition supplements, nutrition consult Supportive care, treat the underlying cause of malnutrition --severe hypoalbuminemia albumin 1.6 Nutrition supplements, nutrition consult --Full code -DVT prophylaxis SCD for prophylaxis. Pepcid 20 mg IV every 12 hours for GI prophylaxis. Labs ordered for tomorrow Discharge planning issues Placement issues Subjective Date of service: 10/18/21 Principal diagnosis: Sepsis,Covid positive Interval history: 45-year-old female with history of multiple sclerosis was brought from detention for evaluation of fever and tachycardia. History of advanced multiple sclerosis and is bedbound. She has several known decubitus ulcers on her sacral region and and hip. 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 Patient has multiple decubitus ulcers on different stages. On antibiotics 10/14; follow cultures, follow wound care, consult surgeon for possible wound debridement if needed 10/15: Patient tested positive for COVID-19 yesterday. Patient spiking temp, cont vanc and levaquin. consult ID, order repeat blood cx 10/16: ordered TTE, repeat blood cx pending. supportive care for covid 19. -vancomycin d/micheline. Switched to IV Ancef 2 g every 12 hours. Continue levofloxacin for now, f/u urine culture -f/u repeat blood cultures, if positive, would probably need a PEDRITO 10/17: -continue IV Ancef 2 g every 12 hours -Continue levofloxacin, D5 of 5, f/u urine culture -f/u repeat blood cultures negative pt will need IV Ancef x 4 weeks ending 11/12/2021 -will need negative blood cultures at 48 hours before placing a PICC line 10/18 Placement issues Subjective Date of service: 10/18/21 Interval history: Seen and examined the patient at the bedside Patient is cachectic, emaciated, malnourished No new complaints Vital signs noted She is tolerating diet Objective - Constitutional Vitals: Vital Signs - 12hr 10/17/21 10/18/21 10/18/21 21:38 04:46 08:14 Temperature 100.3 F H 99.4 F Pulse Rate 110 H 92 H Respiratory 16 16 Rate Blood Pressure 93/48 99/62 O2 Sat by Pulse 99 100 99 Oximetry General appearance: Present: no acute distress, well-nourished - EENT Eyes: PERRL, EOM intact ENT: hearing intact, clear oral mucosa Ears: bilateral: normal - Neck Neck: supple, normal ROM - Respiratory Respiratory effort: normal Respiratory: bilateral: CTA - Breasts Breasts: normal - Cardiovascular Heart rate: 78 Rhythm: regular Heart Sounds: Present: S1 & S2. Absent: gallop, rub Extremities: pulses intact, No edema, normal color, Full ROM, abnormal (Sacral decubitus ulcers) Extremity abnormal: other (Sacral decubitus ulcers present) - Gastrointestinal General gastrointestinal: Present: soft, non-tender, non-distended, normal bowel sounds - Genitourinary Female genitourinary: normal - Integumentary Integumentary: clear, warm, dry - Musculoskeletal Musculoskeletal: 1, strength equal bilaterally - Neurologic Neurologic: moves all extremities - Psychiatric Psychiatric: memory intact, appropriate mood/affect, intact judgment & insight - Labs CBC & Chem 7: 10/15/21 06:55 10/17/21 07:44
[2021-10-18] MEDS ORDERED: VANCOMYCIN PHARMACY TO DOSE IV SCH (09:00)
[2021-10-18] MEDS: FAMOTIDINE 20 MG/2 ML INJ IV SCH (09:22)
[2021-10-18] MEDS: D5W/0.45% NACL 1,000 ML IV SCH ×2 (09:22→22:10)
[2021-10-18] MEDS: ENOXAPARIN 40 MG/0.4 ML INJ SUB-Q SCH (09:22)
--- NOTE | 2021-10-18 10:14 | Progress Note ---
Assessment and Plan Cultures: COVID-19 PCR: Positive 10/12/2021 blood culture: MSSA 10/13/2021 urine culture: GNR 10/15/2021 blood culture: [facility]PC A/P: 45-year-old female mentally challenged, multiple sclerosis, bedbound, [facility] resident was sent due to fever and tachycardia: #Sepsis: Multifactorial. Present on admission. Secondary to UTI, Staphylococcus aureus bacteremia, multiple decubiti. #Staph aureus bacteremia: Source could be her decubiti. TTE did not reveal any obvious vegetations on the valves. Showed possible PFO. #UTI: completed empiric levofloxacin. #Multiple decubitus ulcers: Bedbound status, contractures. Continue wound care. #Asymptomatic COVID-19: Remains on room air. #Severe protein calorie malnutrition #Reactive thrombocytosis Recs: -continue IV Ancef 2 g every 12 hours -completed levofloxacin x 5 days for UTI. Follow up urine cultures growing GNR -blood cultures from 10/15/2021 are positive, repeats ordered -will need negative blood cultures at 48 hours before placing a PICC line -Wound care and offloading as possible -would not discharge till bacteremia has cleared Guadalupe Sue MD, FACP, [facility] O: [phone] F: [phone] C: [phone] Subjective Date of service: 10/18/21 Principal diagnosis: Sepsis,Covid positive Interval history: Low grade temp yesterday night. Remains on room air. Resting calmly in bed. Objective - Exam Narrative Exam: Physical Exam: Constitutional: Alert, cooperative. No acute distress. Cachexia. Head, Ears, Nose: Normocephalic, atraumatic. External ears, nose normal Eyes: Conjunctivae/corneas clear. No icterus. No ptosis. Neck: Supple, no meningeal signs Cardiovascular: S1, S2 + Respiratory: Good air entry, clear to auscultation bilaterally GI: Soft, non-tender; bowel sounds normal. No peritoneal signs Musculoskeletal: Multiple decubiti, contractures + Skin: No rash or abscess. Wounds + Hem/Lymphatic: No palpable cervical or supraclavicular nodes. No lymphangitis Psych: Calm, no agitation Neurological: Awake, alert - Constitutional Vitals: Vital Signs Temp Pulse Resp BP Pulse Ox 99.4 F 92 H 16 99/62 99 10/18/21 04:46 10/18/21 04:46 10/18/21 04:46 10/18/21 04:46 10/18/21 08:14 Temperature -Last 24 Hours Temperature 99.4 F Temperature 100.3 F Temperature 98.1 F Temperature 97.9 F - Labs CBC & Chem 7: 10/15/21 06:55 10/17/21 07:44
[2021-10-18] MEDS: FAMOTIDINE 20 MG TAB PO SCH (22:04)
[2021-10-19 07:25] LABS: Hematocrit 25.7 % (30.3-42.9); Hemoglobin 8.2 gm/dl (10.1-14.3); Mean Corpuscular HGB Conc 32 % (30-34); Mean Corpuscular Volume 83 fl (79-97); Platelet Count 557 K/mm3 (140-440); Red Blood Count 3.09 M/mm3 (3.65-5.03)
[2021-10-19 07:30] LABS: Red Cell Distribution Width 22.3 % (13.2-15.2)
[2021-10-19 07:51] LABS: Alanine Aminotransferase 7 units/L (7-56); Albumin 1.8 g/dL (3.9-5); Blood Urea Nitrogen 4 mg/dL (7-17); Calcium 7.7 mg/dL (8.4-10.2); Hemolysis Index 0
[2021-10-19 07:52] LABS: BUN/Creatinine Ratio 20
[2021-10-19 08:45] LABS: Total Cells Counted 100
[2021-10-19 08:46] LABS: Anisocytosis 1+; Basophils % (Manual) 0 % (0.0-1.8); Eosinophils % (Manual) 0 % (0.0-4.3); Hypochromasia 1+; Platelet Estimate Consistent w Auto; Target Cells Rare
[2021-10-19] MEDS: ENOXAPARIN 40 MG/0.4 ML INJ SUB-Q SCH (11:23)
[2021-10-19] MEDS: FAMOTIDINE 20 MG TAB PO SCH ×2 (11:23→23:58)
[2021-10-19] MEDS: D5W/0.45% NACL 1,000 ML IV SCH (11:30)
--- NOTE | 2021-10-19 11:55 | Progress Note ---
Assessment and Plan Assessment and plan: -- Sepsis probably secondary to UTI/hip and sacrum decubitus ulcers POA fever, tachycardia, hypotension , leukocytosis UTI per UA Empiric antibiotics, IV fluids, follow cultures ID consult appreciated IV antibiotics till 11/12/2021 IV Ancef and vancomycin Recs: -continue IV Ancef 2 g every 12 hours -completed levofloxacin x 5 days for UTI. Follow up urine cultures growing GNR -blood cultures from 10/15/2021 are positive, repeats ordered -will need negative blood cultures at 48 hours before placing a PICC line -Wound care and offloading as possible --UTI (urinary tract infection) Discontinue Levaquin Urine shows staph aureus resistant to Levaquin but sensitive to Bactrim and tetracycline oxacillin. --History of multiple sclerosis Stable. We will continue the current home medication --Decubitus ulcer[right hip and sacral region] Levaquin 750 mg IV daily. Vancomycin 1 g IV every 12 hours. Wound care evaluation. Blood culture wound culture. Recheck CBC BMP in the morning Follow wound care, surgical consult for wound debridement if needed --COVID-19 virus infection Isolation precautions, PPE protocols COVID precaution. Positive COVID PCR. supportive care as patient on RA --Severe protein calorie malnutrition; Nutrition supplements, nutrition consult Supportive care, treat the underlying cause of malnutrition --severe hypoalbuminemia albumin 1.6 Nutrition supplements, nutrition consult --Full code -DVT prophylaxis SCD for prophylaxis. Pepcid 20 mg IV every 12 hours for GI prophylaxis. Labs ordered for tomorrow Discharge planning issues Placement issues Subjective Date of service: 10/19/21 Principal diagnosis: Sepsis,Covid positive Interval history: 45-year-old female with history of multiple sclerosis [facility] evaluation of fever and tachycardia. History of advanced multiple sclerosis and is bedbound. She has several known decubitus ulcers on her sacral region and and hip. 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 Patient has multiple decubitus ulcers on different stages. On antibiotics 10/14; follow cultures, follow wound care, consult surgeon for possible wound de bridement if needed 10/15: Patient tested positive for COVID-19 yesterday. Patient spiking temp, con t vanc and levaquin. consult ID, order repeat blood cx 10/16: ordered TTE, repeat blood cx pending. supportive care for covid 19. -vancomycin d/micheline. Switched to IV Ancef 2 g every 12 hours. Continue levofloxacin for now, f/u urine culture -f/u repeat blood cultures, if positive, would probably need a PEDRITO 10/17: -continue IV Ancef 2 g every 12 hours -Continue levofloxacin, D5 of 5, f/u urine culture -f/u repeat blood cultures negative pt will need IV Ancef x 4 weeks ending 11/12/2021 -will need negative blood cultures at 48 hours before placing a PICC line 10/18 Placement issues 10/19/21 Rpt blood cultures negative No fever 10/15/21--Cultures sensitivity pending Subjective Date of service: 10/19/21 Interval history: Seen and examined the patient at the bedside Patient is cachectic, emaciated, malnourished No new complaints Vital signs noted She is tolerating diet Objective - Constitutional General appearance: Present: no acute distress, well-nourished - EENT Eyes: PERRL, EOM intact ENT: hearing intact, clear oral mucosa Ears: bilateral: normal - Neck Neck: supple, normal ROM - Respiratory Respiratory effort: normal Respiratory: bilateral: CTA - Breasts Breasts: normal - Cardiovascular Heart rate: 78 Rhythm: regular Heart Sounds: Present: S1 & S2. Absent: gallop, rub Extremities: pulses intact, No edema, normal color, Full ROM, abnormal (Decubitus ulcers on Sacrum) - Gastrointestinal General gastrointestinal: Present: soft, non-tender, non-distended, normal bowel sounds - Genitourinary Female genitourinary: normal - Integumentary Integumentary: clear, warm, dry - Musculoskeletal Musculoskeletal: 1, strength equal bilaterally - Neurologic Neurologic: moves all extremities - Psychiatric Psychiatric: memory intact, appropriate mood/affect, intact judgment & insight - Labs CBC & Chem 7: 10/19/21 06:31 10/19/21 06:31 Labs: Abnormal lab results 10/18/21 10/19/21 10/19/21 Range/Units 11:23 06:31 06:31 RBC 3.09 L (3.65-5.03) M/mm3 Hgb 8.2 L (10.1-14.3) gm/dl Hct 25.7 L (30.3-42.9) % MCH 27 L (28-32) pg RDW 22.3 H (13.2-15.2) % Plt Count 557 H (140-440) K/mm3 Seg Neuts % (Manual) 87.0 H (40.0-70.0) % Lymphocytes % (Manual) 9.0 L (13.4-35.0) % Seg Neutrophils # Man 9.1 H (1.8-7.7) K/mm3 Lymphocytes # (Manual) 0.9 L (1.2-5.4) K/mm3 Sodium 135 L (137-145) mmol/L BUN 4 L (7-17) mg/dL Creatinine < 0.2 L (0.6-1.2) mg/dL Calcium 7.7 L (8.4-10.2) mg/dL Total Protein 5.2 L (6.3-8.2) g/dL Albumin 1.8 L (3.9-5) g/dL SARS-CoV-2 (PCR) Positive A (Negative)
[2021-10-20] MEDS: D5W/0.45% NACL 1,000 ML IV SCH (04:54)
[2021-10-20 07:32] LABS: Basophils % (Auto) 0.4 % (0.0-1.8); Eosinophils % (Auto) 0.2 % (0.0-4.3); Hematocrit 26.1 % (30.3-42.9); Lymphocytes # (Auto) 1.5 K/mm3 (1.2-5.4); Lymphocytes % (Auto) 17.1 % (13.4-35.0); Mean Corpuscular HGB Conc 31 % (30-34); Mean Corpuscular Volume 84 fl (79-97); Monocytes # (Auto) 0.7 K/mm3 (0.0-0.8); Monocytes % (Auto) 8.4 % (0.0-7.3); Platelet Count 639 K/mm3 (140-440); Red Blood Count 3.11 M/mm3 (3.65-5.03); Red Cell Distribution Width 22.5 % (13.2-15.2)
[2021-10-20 07:57] LABS: Alanine Aminotransferase 8 units/L (7-56); Albumin 1.7 g/dL (3.9-5); BUN/Creatinine Ratio 25; Blood Urea Nitrogen 5 mg/dL (7-17); Calcium 8.1 mg/dL (8.4-10.2); Hemolysis Index 2
[2021-10-20] MEDS: ENOXAPARIN 40 MG/0.4 ML INJ SUB-Q SCH (11:39)
[2021-10-20] MEDS: FAMOTIDINE 20 MG TAB PO SCH ×2 (11:39→21:51)
[2021-10-20] MEDS ORDERED: POTASSIUM CHLORIDE ER 20 MEQ TAB PO SCH (12:38)
--- NOTE | 2021-10-20 12:46 | Progress Note ---
Assessment and Plan 45-year-old female with history of multiple sclerosis was brought from [facility] for evaluation of fever and tachycardia. History of advanced multiple sclerosis and is bedbound. She has several known decubitus ulcers on her sacral region and and hip. 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 Patient has multiple decubitus ulcers on different stages. On antibiotics 10/14; follow cultures, follow wound care, consult surgeon for possible wound debridement if needed 10/15: Patient tested positive for COVID-19 yesterday. Patient spiking temp, cont vanc and levaquin. consult ID, order repeat blood cx 10/16: ordered TTE, repeat blood cx pending. supportive care for covid 19. -vancomycin d/micheline. Switched to IV Ancef 2 g every 12 hours. Continue levofloxacin for now, f/u urine culture -f/u repeat blood cultures, if positive, would probably need a PEDRITO 10/17: -continue IV Ancef 2 g every 12 hours -Continue levofloxacin, D5 of 5, f/u urine culture -f/u repeat blood cultures, if negative pt will need IV Ancef x 4 weeks ending 11/12/2021 -will need negative blood cultures at 48 hours before placing a PICC line 10/18: Placement issues, repeat COVID test is positive. blood cx from yesterday is positive. plan to order another blood cx. pt not medically clear for dc 10/19/21: blood cx from 10/12, 10/13 and 10/15 positive. Rpt blood cultures from yesterday negative at 24 h. No fever, cont iv abx and follow clinically. 10/20: blood cx from 10/18 so far neg. will wait for ID clearance to order for PICC line. cont iv abx. Assessment and plan: -- Sepsis probably secondary to UTI/hip and sacrum decubitus ulcers POA fever, tachycardia, hypotension , leukocytosis UTI per UA Empiric antibiotics, IV fluids, follow cultures ID consulted --Staph aureus bacteremia: with poersistent positive blood cx on 10/12, 10/13 and 10/15 Source could be her decubiti. TTE did not reveal any obvious vegetations on the valves. Showed possible PFO. last blood cx neg, need abx recommendation on discharge from ID -continue IV Ancef 2 g every 12 hours --UTI (urinary tract infection) Discontinue Levaquin Urine shows staph aureus resistant to Levaquin but sensitive to Bactrim and tetracycline oxacillin. -continue IV Ancef 2 g every 12 hours --History of multiple sclerosis Stable. We will continue the current home medication --Decubitus ulcer[right hip and sacral region] s/p levaquin and Vancomycin. now continue IV Ancef 2 g every 12 hours per ID Wound care evaluation. Blood culture wound culture. Recheck CBC BMP in the morning Follow wound care, surgical consult for wound debridement if needed --COVID-19 virus infection, positive on 10/14; 10/18 Isolation precautions, PPE protocols COVID precaution. Positive COVID PCR. supportive care as patient on RA --Severe protein calorie malnutrition; Nutrition supplements, nutrition consult Supportive care, treat the underlying cause of malnutrition --severe hypoalbuminemia albumin 1.6 Nutrition supplements, nutrition consult --Full code -DVT prophylaxis SCD for prophylaxis. Pepcid 20 mg IV every 12 hours for GI prophylaxis. Subjective Date of service: 10/20/21 Principal diagnosis: Sepsis,Covid positive Interval history: Seen and examined the patient at the bedside Patient is cachectic, emaciated, malnourished No new complaints Vital signs noted She is tolerating diet Remains covid positive Objective - Exam Narrative Exam: General appearance: Present: no acute distress, well-nourished, cachectic, disheveled, other (Attracted) - EENT Eyes: Present: PERRL, EOM intact - Neck Neck: Present: supple, normal ROM - Respiratory Respiratory effort: normal Respiratory: bilateral: diminished, negative: rales, rhonchi, wheezing - Cardiovascular Rhythm: regular Heart Sounds: Present: S1 & S2 - Extremities Extremities: no ischemia, No edema, abnormal (Multiple decubitus ulcers) Extremity abnormal: other (Contracted) - Abdominal General gastrointestinal: soft, non-tender, non-distended, normal bowel sounds - Integumentary Integumentary: Present: clear, warm - Psychiatric Psychiatric: appropriate mood/affect, cooperative - Neurologic Neurologic: moves all extremities (Minimally communicative) - Labs CBC & Chem 7: 10/20/21 06:15 10/20/21 06:15 Labs: Abnormal lab results 10/20/21 10/20/21 Range/Units 06:15 06:15 RBC 3.11 L (3.65-5.03) M/mm3 Hgb 8.0 L (10.1-14.3) gm/dl Hct 26.1 L (30.3-42.9) % MCH 26 L (28-32) pg RDW 22.5 H (13.2-15.2) % Plt Count 639 H (140-440) K/mm3 [place] % (Auto) 8.4 H (0.0-7.3) % Seg Neutrophils % 73.9 H (40.0-70.0) % Potassium 3.2 L (3.6-5.0) mmol/L BUN 5 L (7-17) mg/dL Creatinine < 0.2 L (0.6-1.2) mg/dL Calcium 8.1 L (8.4-10.2) mg/dL Total Protein 6.2 L (6.3-8.2) g/dL Albumin 1.7 L (3.9-5) g/dL
[2021-10-21] MEDS: D5W/0.45% NACL 1,000 ML IV SCH ×2 (00:27→10:48)
[2021-10-21] MEDS: ENOXAPARIN 40 MG/0.4 ML INJ SUB-Q SCH (10:43)
[2021-10-21] MEDS: FAMOTIDINE 20 MG TAB PO SCH ×2 (10:43→22:51)
--- NOTE | 2021-10-21 14:24 | Progress Note ---
Assessment and Plan 45-year-old female with history of multiple sclerosis was brought from jail for evaluation of fever and tachycardia. History of advanced multiple sclerosis and is bedbound. She has several known decubitus ulcers on her sacral region and and hip. 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 Patient has multiple decubitus ulcers on different stages. On antibiotics 10/14; follow cultures, follow wound care, consult surgeon for possible wound debridement if needed 10/15: Patient tested positive for COVID-19 yesterday. Patient spiking temp, cont vanc and levaquin. consult ID, order repeat blood cx 10/16: ordered TTE, repeat blood cx pending. supportive care for covid 19. -vancomycin d/micheline. Switched to IV Ancef 2 g every 12 hours. Continue levofloxacin for now, f/u urine culture -f/u repeat blood cultures, if positive, would probably need a PEDRITO 10/17: -continue IV Ancef 2 g every 12 hours -Continue levofloxacin, D5 of 5, f/u urine culture -f/u repeat blood cultures, if negative pt will need IV Ancef x 4 weeks ending 11/12/2021 -will need negative blood cultures at 48 hours before placing a PICC line 10/18: Placement issues, repeat COVID test is positive. blood cx from yesterday is positive. plan to order another blood cx. pt not medically clear for dc 10/19/21: blood cx from 10/12, 10/13 and 10/15 positive. Rpt blood cultures from yesterday negative at 24 h. No fever, cont iv abx and follow clinically. 10/20: blood cx from 10/18 so far neg. will wait for ID clearance to order for PICC line. cont iv abx. 10/21: blood cx from 10/18 remains -ve for 48h, order PICC line to cont IV Ancef x 4 weeks ending 11/12/2021. cont supportive care. plan to dc back to SNF with iv abx . Assessment and plan: -- Sepsis probably secondary to UTI/hip and sacrum decubitus ulcers POA fever, tachycardia, hypotension , leukocytosis UTI per UA Empiric antibiotics, IV fluids, follow cultures ID consulted --Staph aureus bacteremia: with poersistent positive blood cx on 10/12, 10/13 and 10/15 Source could be her decubiti. TTE did not reveal any obvious vegetations on the valves. Showed possible PFO. last blood cx neg, need abx recommendation on discharge from ID -continue IV Ancef 2 g every 12 hours --UTI (urinary tract infection) Discontinue Levaquin Urine shows staph aureus resistant to Levaquin but sensitive to Bactrim and tetracycline oxacillin. -continue IV Ancef 2 g every 12 hours --History of multiple sclerosis Stable. We will continue the current home medication --Decubitus ulcer[right hip and sacral region] s/p levaquin and Vancomycin. now continue IV Ancef 2 g every 12 hours per ID Wound care evaluation. Blood culture wound culture. Recheck CBC BMP in the morning Follow wound care, surgical consult for wound debridement if needed --COVID-19 virus infection, positive on 10/14; 10/18 Isolation precautions, PPE protocols COVID precaution. Positive COVID PCR. supportive care as patient on RA --Severe protein calorie malnutrition; Nutrition supplements, nutrition consult Supportive care, treat the underlying cause of malnutrition --severe hypoalbuminemia albumin 1.6 Nutrition supplements, nutrition consult --Full code -DVT prophylaxis SCD for prophylaxis. Pepcid 20 mg IV every 12 hours for GI prophylaxis. Subjective Date of service: 10/21/21 Principal diagnosis: Sepsis,Covid positive Interval history: Seen and examined the patient at the bedside Patient is cachectic, emaciated, malnourished No new complaints Vital signs noted She is tolerating diet Remains covid positive Objective - Exam Narrative Exam: General appearance: Present: no acute distress, well-nourished, cachectic, disheveled, other (Attracted) - EENT Eyes: Present: PERRL, EOM intact - Neck Neck: Present: supple, normal ROM - Respiratory Respiratory effort: normal Respiratory: bilateral: diminished, negative: rales, rhonchi, wheezing - Cardiovascular Rhythm: regular Heart Sounds: Present: S1 & S2 - Extremities Extremities: no ischemia, No edema, abnormal (Multiple decubitus ulcers) Extremity abnormal: other (Contracted) - Abdominal General gastrointestinal: soft, non-tender, non-distended, normal bowel sounds - Integumentary Integumentary: Present: clear, warm - Psychiatric Psychiatric: appropriate mood/affect, cooperative - Neurologic Neurologic: moves all extremities (Minimally communicative) - Constitutional Vitals: Vital Signs - 12hr 10/21/21 09:10 O2 Sat by Pulse 100 Oximetry - Labs CBC & Chem 7: 10/20/21 06:15 10/20/21 06:15
[2021-10-21] MEDS ORDERED: POTASSIUM CHLORIDE ER 20 MEQ TAB PO NR (15:00)
--- NOTE | 2021-10-22 07:24 | Progress Note ---
Assessment and Plan Assessment and plan: 45-year-old female with history of multiple sclerosis was brought from prison for evaluation of fever and tachycardia. History of advanced multiple sclerosis and is bedbound. She has several known decubitus ulcers on her sacral region and and hip. 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 Patient has multiple decubitus ulcers on different stages. On antibiotics 10/14; follow cultures, follow wound care, consult surgeon for possible wound debridement if needed 10/15: Patient tested positive for COVID-19 yesterday. Patient spiking temp, cont vanc and levaquin. consult ID, order repeat blood cx 10/16: ordered TTE, repeat blood cx pending. supportive care for covid 19. -vancomycin d/micheline. Switched to IV Ancef 2 g every 12 hours. Continue levofloxacin for now, f/u urine culture -f/u repeat blood cultures, if positive, would probably need a PEDRITO 10/17: -continue IV Ancef 2 g every 12 hours -Continue levofloxacin, D5 of 5, f/u urine culture -f/u repeat blood cultures, if negative pt will need IV Ancef x 4 weeks ending 11/12/2021 -will need negative blood cultures at 48 hours before placing a PICC line 10/18: Placement issues, repeat COVID test is positive. blood cx from yesterday is positive. plan to order another blood cx. pt not medically clear for dc 10/19/21: blood cx from 10/12, 10/13 and 10/15 positive. Rpt blood cultures from yesterday negative at 24 h. No fever, cont iv abx and follow clinically. 10/20: blood cx from 10/18 so far neg. will wait for ID clearance to order for PICC line. cont iv abx. 10/21: blood cx from 10/18 remains -ve for 48h, order PICC line to cont IV Ancef x 4 weeks ending 11/12/2021. cont supportive care. plan to dc back to SNF with iv abx . 10/22; patient is receiving PICC line today for long-term antibiotics, DC back to SNF tomorrow Case management assisting with discharge planning Assessment and plan: -- Sepsis probably secondary to UTI/hip and sacrum decubitus ulcers POA fever, tachycardia, hypotension , leukocytosis UTI per UA Empiric antibiotics, IV fluids, follow cultures ID consulted --Staph aureus bacteremia: with poersistent positive blood cx on 10/12, 10/13 and 10/15 Source could be her decubiti. TTE did not reveal any obvious vegetations on the valves. Showed possible PFO. last blood cx neg, need abx recommendation on discharge from ID -continue IV Ancef 2 g every 12 hours --UTI (urinary tract infection) Discontinue Levaquin Urine shows staph aureus resistant to Levaquin but sensitive to Bactrim and tetracycline oxacillin. -continue IV Ancef 2 g every 12 hours --History of multiple sclerosis Stable. We will continue the current home medication --Decubitus ulcer[right hip and sacral region] s/p levaquin and Vancomycin. now continue IV Ancef 2 g every 12 hours per ID Wound care evaluation. Blood culture wound culture. Recheck CBC BMP in the morning Follow wound care, surgical consult for wound debridement if needed --COVID-19 virus infection, positive on 10/14; 10/18 Isolation precautions, PPE protocols COVID precaution. Positive COVID PCR. supportive care as patient on RA --Severe protein calorie malnutrition; Nutrition supplements, nutrition consult Supportive care, treat the underlying cause of malnutrition --severe hypoalbuminemia albumin 1.6 Nutrition supplements, nutrition consult --Full code -DVT prophylaxis SCD for prophylaxis. Pepcid 20 mg IV every 12 hours for GI prophylaxis. PICC line being placed today, possible discharge to SNF tomorrow DC planning per case management History Interval history: Seen and examined the patient at the bedside Patient's chart and medications reviewed Patient is receiving PICC line for long-term antibiotics Cachectic emaciated and contracted Vital signs Hospitalist Physical - Constitutional Vitals: Temp Pulse Resp BP Pulse Ox 97.7 F 99 H 16 91/59 100 10/21/21 21:35 10/21/21 21:35 10/21/21 21:35 10/21/21 21:35 10/21/21 21:35 General appearance: Present: no acute distress, well-nourished - EENT Eyes: Present: PERRL, EOM intact - Neck Neck: Present: supple, normal ROM - Respiratory Respiratory effort: normal Respiratory: bilateral: diminished, negative: rales, rhonchi, wheezing - Cardiovascular Rhythm: regular Heart Sounds: Present: S1 & S2 - Extremities Extremities: no ischemia, No edema - Abdominal General gastrointestinal: soft, non-tender, non-distended, normal bowel sounds - Integumentary Integumentary: Present: clear, warm - Psychiatric Psychiatric: appropriate mood/affect, cooperative - Neurologic Neurologic: moves all extremities Results - Labs CBC & Chem 7: 10/20/21 06:15 10/22/21 07:12 Labs: Laboratory Last Values WBC 8.9 K/mm3 (4.5-11.0) 10/20/21 06:15 RBC 3.11 M/mm3 (3.65-5.03) L 10/20/21 06:15 Hgb 8.0 gm/dl (10.1-14.3) L 10/20/21 06:15 Hct 26.1 % (30.3-42.9) L 10/20/21 06:15 MCV 84 fl (79-97) 10/20/21 06:15 MCH 26 pg (28-32) L 10/20/21 06:15 MCHC 31 % (30-34) 10/20/21 06:15 RDW 22.5 % (13.2-15.2) H 10/20/21 06:15 Plt Count 639 K/mm3 (140-440) H 10/20/21 06:15 Lymph % (Auto) 17.1 % (13.4-35.0) 10/20/21 06:15 [place] % (Auto) 8.4 % (0.0-7.3) H 10/20/21 06:15 Eos % (Auto) 0.2 % (0.0-4.3) 10/20/21 06:15 Baso % (Auto) 0.4 % (0.0-1.8) 10/20/21 06:15 Lymph # (Auto) 1.5 K/mm3 (1.2-5.4) 10/20/21 06:15 [place] # (Auto) 0.7 K/mm3 (0.0-0.8) 10/20/21 06:15 Eos # (Auto) 0.0 K/mm3 (0.0-0.4) 10/20/21 06:15 Baso # (Auto) 0.0 K/mm3 (0.0-0.1) 10/20/21 06:15 Add Manual Diff Complete 10/19/21 06:31 Total Counted 100 10/19/21 06:31 Seg Neutrophils % 73.9 % (40.0-70.0) H 10/20/21 06:15 Seg Neuts % (Manual) 87.0 % (40.0-70.0) H 10/19/21 06:31 Band Neutrophils % 0 % 10/19/21 06:31 Lymphocytes % (Manual) 9.0 % (13.4-35.0) L 10/19/21 06:31 Reactive Lymphs % (Man) 0 % 10/19/21 06:31 Monocytes % (Manual) 4.0 % (0.0-7.3) 10/19/21 06:31 Eosinophils % (Manual) 0 % (0.0-4.3) 10/19/21 06:31 Basophils % (Manual) 0 % (0.0-1.8) 10/19/21 06:31 Metamyelocytes % 0 % 10/19/21 06:31 Myelocytes % 0 % 10/19/21 06:31 Promyelocytes % 0 % 10/19/21 06:31 Blast Cells % 0 % 10/19/21 06:31 Nucleated RBC % Not Reportable 10/19/21 06:31 Seg Neutrophils # 6.6 K/mm3 (1.8-7.7) 10/20/21 06:15 Seg Neutrophils # Man 9.1 K/mm3 (1.8-7.7) H 10/19/21 06:31 Band Neutrophils # 0.0 K/mm3 10/19/21 06:31 Lymphocytes # (Manual) 0.9 K/mm3 (1.2-5.4) L 10/19/21 06:31 Abs React Lymphs (Man) 0.0 K/mm3 10/19/21 06:31 Monocytes # (Manual) 0.4 K/mm3 (0.0-0.8) 10/19/21 06:31 Eosinophils # (Manual) 0.0 K/mm3 (0.0-0.4) 10/19/21 06:31 Basophils # (Manual) 0.0 K/mm3 (0.0-0.1) 10/19/21 06:31 Metamyelocytes # 0.0 K/mm3 10/19/21 06:31 Myelocytes # 0.0 K/mm3 10/19/21 06:31 Promyelocytes # 0.0 K/mm3 10/19/21 06:31 Blast Cells # 0.0 K/mm3 10/19/21 06:31 WBC Morphology Not Reportable 10/19/21 06:31 Hypersegmented Neuts Not Reportable 10/19/21 06:31 Hyposegmented Neuts Not Reportable 10/19/21 06:31 Hypogranular Neuts Not Reportable 10/19/21 06:31 Smudge Cells Not Reportable 10/19/21 06:31 Toxic Granulation Not Reportable 10/19/21 06:31 Toxic Vacuolation Not Reportable 10/19/21 06:31 Dohle Bodies Not Reportable 10/19/21 06:31 Pelger-Huet Anomaly Not Reportable 10/19/21 06:31 Vandana Rods Not Reportable 10/19/21 06:31 Platelet Estimate Consistent w auto 10/19/21 06:31 Clumped Platelets Not Reportable 10/19/21 06:31 Plt Clumps, EDTA Not Reportable 10/19/21 06:31 Large Platelets Not Reportable 10/19/21 06:31 Giant Platelets Not Reportable 10/19/21 06:31 Platelet Satelliting Not Reportable 10/19/21 06:31 Plt Morphology Comment Not Reportable 10/19/21 06:31 RBC Morphology Not Reportable 10/19/21 06:31 Dimorphic RBCs Not Reportable 10/19/21 06:31 Polychromasia Not Reportable 10/19/21 06:31 Hypochromasia 1+ 10/19/21 06:31 Poikilocytosis Not Reportable 10/19/21 06:31 Anisocytosis 1+ 10/19/21 06:31 Microcytosis Not Reportable 10/19/21 06:31 Macrocytosis Not Reportable 10/19/21 06:31 Spherocytes Not Reportable 10/19/21 06:31 Pappenheimer Bodies Not Reportable 10/19/21 06:31 Sickle Cells Not Reportable 10/19/21 06:31 Target Cells Rare 10/19/21 06:31 Tear Drop Cells Not Reportable 10/19/21 06:31 Ovalocytes Not Reportable 10/19/21 06:31 Helmet Cells Not Reportable 10/19/21 06:31 [place] Bodies Not Reportable 10/19/21 06:31 [place] Rings Not Reportable 10/19/21 06:31 Yao Cells Not Reportable 10/19/21 06:31 Bite Cells Not Reportable 10/19/21 06:31 Crenated Cell Not Reportable 10/19/21 06:31 Elliptocytes Not Reportable 10/19/21 06:31 Acanthocytes (Spur) Not Reportable 10/19/21 06:31 Rouleaux Not Reportable 10/19/21 06:31 Hemoglobin C Crystals Not Reportable 10/19/21 06:31 Schistocytes Not Reportable 10/19/21 06:31 Malaria parasites Not Reportable 10/19/21 06:31 Felix Bodies Not Reportable 10/19/21 06:31 Hem Pathologist Commnt No 10/19/21 06:31 APTT 41.0 Sec. (24.2-36.6) H 10/12/21 23:11 Fibrinogen 850 mg/dl (211-480) H 10/12/21 23:11 Sodium 137 mmol/L (137-145) 10/20/21 06:15 Potassium 3.2 mmol/L (3.6-5.0) L 10/20/21 06:15 Chloride 101.9 mmol/L (98-107) 10/20/21 06:15 Carbon Dioxide 28 mmol/L (22-30) 10/20/21 06:15 Anion Gap 10 mmol/L 10/20/21 06:15 BUN 5 mg/dL (7-17) L 10/20/21 06:15 Creatinine < 0.2 mg/dL (0.6-1.2) L 10/20/21 06:15 Estimated GFR > 60 ml/min 10/20/21 06:15 BUN/Creatinine Ratio 25 % 10/20/21 06:15 Glucose 88 mg/dL (65-100) 10/20/21 06:15 POC Glucose 122 mg/dL (70-105) H 10/13/21 14:52 Lactic Acid 1.70 mmol/L (0.7-2.0) 10/12/21 23:11 Calcium 8.1 mg/dL (8.4-10.2) L 10/20/21 06:15 Total Bilirubin 0.20 mg/dL (0.1-1.2) 10/20/21 06:15 AST 14 units/L (5-40) 10/20/21 06:15 ALT 8 units/L (7-56) 10/20/21 06:15 Alkaline Phosphatase 105 units/L (35-129) 10/20/21 06:15 Total Creatine Kinase 46 units/L (30-135) 10/12/21 23:11 Total Protein 6.2 g/dL (6.3-8.2) L 10/20/21 06:15 Albumin 1.7 g/dL (3.9-5) L 10/20/21 06:15 Albumin/Globulin Ratio 0.4 % 10/20/21 06:15 Urine Color Yellow (Yellow) 10/13/21 02:33 Urine Turbidity Cloudy (Clear) 10/13/21 02:33 Urine pH 6.0 (5.0-7.0) 10/13/21 02:33 Ur Specific [place] 1.030 (1.003-1.030) 10/13/21 02:33 Urine Protein 100 mg/dl mg/dL (Negative) 10/13/21 02:33 Urine Glucose (UA) Negative mg/dL (Negative) 10/13/21 02:33 Urine Ketones Trace mg/dL (Negative) 10/13/21 02:33 Urine Blood Moderate (Negative) A 10/13/21 02:33 Urine Nitrite Positive (Negative) 10/13/21 02:33 Ur Reducing Substances Not Reportable 10/13/21 02:33 Urine Bilirubin Negative (Negative) 10/13/21 02:33 Urine Ictotest Not Reportable 10/13/21 02:33 Urine Urobilinogen 2.0 mg/dL (<2.0) 10/13/21 02:33 Ur Leukocyte Esterase Moderate (Negative) 10/13/21 02:33 Urine WBC (Auto) > 182.0 /HPF (0.0-6.0) H 10/13/21 02:33 Urine RBC (Auto) 61.0 /HPF (0.0-6.0) 10/13/21 02:33 Urine Bacteria (Auto) 4+ /HPF (Negative) 10/13/21 02:33 Urine Mucus 3+ /HPF 10/13/21 02:33 Nasal Screen MRSA (PCR) Negative (Negative) 10/14/21 08:07 Vancomycin Trough 10.3 ug/mL (5.0-20.0) 10/16/21 06:58 Coronavirus (PCR) Positive (Negative) A 10/14/21 10:35 SARS-CoV-2 (PCR) Positive (Negative) A 10/18/21 11:23 Blood Type A POSITIVE 10/12/21 23:11 Antibody Screen Negative 10/12/21 23:11 Microbiology: Microbiology 10/18/21 10:38 Peripheral/Venous Blood Culture - Preliminary NO GROWTH AFTER 72 HOURS 10/18/21 10:38 Peripheral/Venous Blood Culture - Preliminary NO GROWTH AFTER 72 HOURS 10/13/21 02:32 Urine,Catheterized - Indwelling Catheter Urine Culture - Final Pseudomonas Aeruginosa Pseudomonas Aeruginosa#2 Pseudomonas Aeruginosa#3 Rangel/IV: Voiding Method Indwelling Catheter Active Medications - Current Medications Current Medications: Generic Name Dose Route Start Last Admin Trade Name Freq PRN Reason Stop Dose Admin Acetaminophen 650 mg 10/13/21 04:58 10/18/21 05:14 Acetaminophen 325 Mg Tab PO 650 mg Q4H PRN Administration Pain MILD(1-3)/Fever >100.5/RIOC Albuterol 2 puff 10/14/21 20:00 Albuterol 8.5 Gm Mdi Inhalation IH Q4HRT PRN Shortness Of Breath Enoxaparin Sodium 40 mg 10/13/21 10:00 10/21/21 10:43 Enoxaparin 40 Mg/0.4 Ml Inj SUB-Q 40 mg QDAY MEREDITH Administration Famotidine 20 mg 10/18/21 22:00 10/21/21 22:51 Famotidine 20 Mg Tab PO 20 mg BID MEREDITH Administration Dextrose/Sodium Chloride 1,000 mls @ 100 mls/hr 10/13/21 05:00 10/21/21 10:48 D5/0.45ns IV 100 mls/hr DIRECT MEREDITH Administration Cefazolin Sodium 2 gm/ Sodium 100 mls @ 200 mls/hr 10/16/21 12:00 10/22/21 00:41 Chloride IV 200 mls/hr Q12H MEREDITH Administration Protocol Morphine Sulfate 2 mg 10/13/21 04:58 Morphine 2 Mg/1 Ml Inj IV Q4H PRN Pain, Moderate (4-6) Morphine Sulfate 4 mg 10/13/21 04:58 Morphine 4 Mg/1 Ml Inj IV Q4H PRN Pain , Severe (7-10) Ondansetron HCl 4 mg 10/13/21 04:58 Ondansetron 4 Mg/2 Ml Inj IV Q8H PRN Nausea And Vomiting Sodium Chloride 10 ml 10/13/21 10:00 10/21/21 22:51 Sodium Chloride 0.9% 10 Ml Flush Syringe IV 10 ml BID MEREDITH Administration Sodium Chloride 10 ml 10/13/21 04:58 Sodium Chloride 0.9% 10 Ml Flush Syringe IV PRN PRN LINE FLUSH Nutrition/Malnutrition Assess - Dietary Evaluation Nutrition/Malnutrition Findings: Nutrition Notes Start: 10/13/21 10:06 Freq: Status: Active Protocol: Document 10/21/21 11:35 TRINH (Rec: 10/21/21 12:14 TRINH [id number]) Nutrition Notes Initial or Follow up Reassessment Current Diagnosis Decubitus(Pressure Ulcer), Sepsis,Malnutrition Other Pertinent Diagnosis UTI, Bacteremia, COVID-19, Hypoalbuminemia, MS. Current Diet Mechanical Soft -Ground Meats- Diet+ D Suppl (since D 10/16) . Labs/Tests 10/21: K 3.2, BUN 5, Crea <0.2 , Ca 8.1. Pertinent Medications 10/21: D5/0.45ns @ 100ml/hr, others nutritionally unremarkable. Height 5 ft 8 in Weight 44.7 kg [place] Body Weight (kg) 63.63 BMI 15.0 Weight change and time frame 0.659 Kg body weight loss in 1 week reported. Subjective/Other Information RD consult for routine F/U on dietary advancement. Diet advanced to Mechanical Soft, Pt's PO intake of meals has been Fair (>50%) and fairly tolerated, according to ADL notes. DRILLING MANAGER note on 10/17/21 16:12: Services have been discontinued as the patient is safe for a mechanical soft diet with ground meats. - END OF NOTE. Pt is on Room Air, O2 saturation @ 100%, according to Physical Assessment History notes. Pt remains incontinent , according to Physical Assessment History notes. Percent of energy/protein needs met: Prescribed Mechanical Soft - Ground Meats- Diet provides for energy/protein needs (2, 048 Kcal/97 g) during LOS.; additionally, Dietary Supplements will compensate for possible poor or insufficient PO intake of meals with 1,050 Kcal and 60 g of protein. Burn Absent Trauma Absent GI Symptoms Other Difficulty In Swallowing,Chewing Food Allergy No Skin Integrity/Comment Multiple decubitus ulcers present Current % PO Fair (50-74%) Minimum of two criteria Yes Energy Intake (severe) < or equal to 50% Estimated Energy Requirement > or equal to 5 days Interpretation of Weight Loss (severe) > 20% in 1 year Body Fat Depletion Moderate depletion (severe) Muscle Mass Moderate Depletion (severe) Fluid Accumulation N/A Reduced Aircraft [employer]ures Strength Measurably Reduced (severe) Protein-Calorie Malnutrition Severe #4 Nutrition Diagnosis Inadequate protein-energy intake Comments: Pt's PO intake of meals has been Fair (>50%) and fairly tolerated, according to ADL notes. Diagnosis Progress(for reassessment Improved documentation) #3 Nutrition Diagnosis Increased nutrient needs ( specify in comment below) Comments: Protein to support wound healing processes. Diagnosis Progress(for reassessment Continues documentation) #2 Nutrition Diagnosis Malnutrition Diagnosis Progress(for reassessment Continues documentation) #1 Nutrition Diagnosis Underweight Comments: 0.659 Kg body weight loss in 1 week reported. Diagnosis Progress(for reassessment Continues documentation) Is patient on ventilator? No Is Patient Ambulatory and/or Out of Bed No REE-([place]-St. Jeor-confined to bed) 1384.188 Kcal/Kg value to use for calculation 41 Approximate Energy Requirements Using 1833 kcal/Kg Calculation Used for Recommendations Kcal/kg Additional Notes Protein: 1.2-1.5 g/Kg ABW; 54- 68 g/day. Fluids: 1 ml/Kcal, or as per MD. Nutrition Intervention Change Diet Order: Continue Mechanical Soft - Ground Meats- Diet as tolerated. Add Supplement/Snack (indicate name/kcal Continue 8 fl oz Ensure Enlive /protein ) ; TID. Provides kCal: 1,050 Provides Protein (gm) 60 Goal #1 Compensate, through dietary supplementation, for possible poor or insufficient PO intake of meals during LOS. Goal #2 Support, through dietary supplementation, wound healing processes during LOS. Goal #3 Facilitate PO intake of meals with elemental, textural, or mechanical modification during LOS. Goal #4 Adjust the dietary intervention to better serve Pt's needs and clinical conditions during LOS. Follow-Up By: 10/28/21 Additional Comments Continue monitoring food tolerance, %PO intake of meals , dietary supplements, and BM.
[2021-10-22 08:11] LABS: Blood Urea Nitrogen 4 mg/dL (7-17); Calcium 7.9 mg/dL (8.4-10.2); Hemolysis Index 0
[2021-10-22 08:19] LABS: BUN/Creatinine Ratio 20
[2021-10-22] MEDS: FAMOTIDINE 20 MG TAB PO SCH ×2 (10:56→21:24)
[2021-10-22] MEDS: ENOXAPARIN 40 MG/0.4 ML INJ SUB-Q SCH (10:57)
--- NOTE | 2021-10-22 11:58 | Progress Note ---
Assessment and Plan Cultures: COVID-19 PCR: Positive 10/12/2021 blood culture: MSSA 10/13/2021 urine culture: Pseudomonas 10/15/2021 blood culture: GPC A/P: 45-year-old female mentally challenged, multiple sclerosis, bedbound, [facility] resident was sent due to fever and tachycardia: #Sepsis: Multifactorial. Present on admission. Secondary to UTI, Staphylococcus aureus bacteremia, multiple decubiti. #Staph aureus bacteremia: Source could be her decubiti. TTE did not reveal any obvious vegetations on the valves. Showed possible PFO. #UTI: completed empiric levofloxacin. #Multiple decubitus ulcers: Bedbound status, contractures. Continue wound care. #Asymptomatic COVID-19: Remains on room air. #Severe protein calorie malnutrition #Reactive thrombocytosis Recs: -continue IV Ancef 2 g every 12 hours -completed levofloxacin x 5 days for UTI. Follow up urine cultures growing GNR -Okay for PICC line -Wound care and offloading as possible -Case management consulted for cefazolin 2 g every 8 hours until 11/14/2021 Mariela Mann MD [facility] O: [phone] F: [phone] Subjective Date of service: 10/22/21 Principal diagnosis: Sepsis,Covid positive Interval history: Afebrile, normal white count. Blood cultures are negative. Objective - Exam Narrative Exam: Physical exam deferred to reduce risk of transmission of COVID-19. Please refer to primary team's note. - Constitutional Vitals: Vital Signs Temp Pulse Resp BP Pulse Ox 97.7 F 99 H 16 91/59 100 10/21/21 21:35 10/21/21 21:35 10/21/21 21:35 10/21/21 21:35 10/21/21 21:35 Temperature -Last 24 Hours Temperature 97.7 F Temperature 98.7 F Temperature 99.0 F - Labs CBC & Chem 7: 10/20/21 06:15 10/22/21 07:12 Labs: Abnormal lab results 10/22/21 Range/Units 07:12 BUN 4 L (7-17) mg/dL Creatinine < 0.2 L (0.6-1.2) mg/dL Calcium 7.9 L (8.4-10.2) mg/dL
[2021-10-23] MEDS: D5W/0.45% NACL 1,000 ML IV SCH (03:01)
--- NOTE | 2021-10-23 08:02 | Discharge Summary ---
Providers - Providers Date of Admission: 10/13/21 09:51 Date of discharge: 10/23/21 Attending physician: JOAQUINA DAILY 10/13/21 04:59 Consult to Dietitian/Nutrition [CONS] Routine Physician Instructions: Reason For Exam: Reason for Consult: Diet education 10/13/21 05:01 Speech Therapy Evaluation and Treat [CONS] Routine Reason For Exam: diet 10/13/21 05:07 Consult to Wound/ET Nurse [CONS] Routine Reason For Exam: wound eval 10/15/21 09:10 Consult to Physician [CONS] Routine Comment: Consulting Provider: TORRES MARLOW Physician Instructions: Reason For Exam: staph bacteremia 10/21/21 14:11 Consult to PICC Line RN [CONS] Routine Reason For Exam: need iv abx Type Line:: PICC 10/22/21 11:58 Consult to Case Management [CONS] Routine Services Needed at Discharge: Home Health Services Notified:: cm notified Additional Physician Instructions: Mariela Mott MD [facility] infectious disease consultants ([facility]) M: [phone] O: [phone] F: [phone] Outpatient parenteral antibiotic therapy orders Diagnosis: MSSA bacteremia Antibiotic administration: cefazolin 2 g every 8 hours until 11/14/2021 Line: PICC line Lab monitoring: CBC with differential, CMP once per week preferably on Thursday or Thursday For critical labs, call office: [phone] Mariela Mott [facility] Hospitalization Reason for admission: Fever and tachycardia Condition: Stable Pertinent studies: Echocardiogram: 10/15/2021/ LVEF 45 to 50% possible PFO no obvious vegetations on the valves [no endocarditis] Chest x-ray no acute abnormality noted Hospital course: 45-year-old female with history of multiple sclerosis was brought from care home for evaluation of fever and tachycardia. History of advanced multiple sclerosis and is bedbound. She has several known decubitus ulcers on her sacral region and and hip. 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 Patient has multiple decubitus ulcers of different stages. On antibiotics, also has UTI Patient was also tested positive for COVID-19, Assessment and plan: -- Sepsis probably secondary to UTI/hip and sacrum decubitus ulcers POA fever, tachycardia, hypotension , leukocytosis UTI per UA Empiric antibiotics, IV fluids, follow cultures ID consulted --Staph aureus bacteremia: with poersistent positive blood cx on 10/12, 10/13 and 10/15 Source could be her decubiti. TTE did not reveal any obvious vegetations on the valves. Showed possible PFO. last blood cx neg, need abx recommendation on discharge from ID -continue IV Ancef 2 g every 12 hours for total 4 weeks stop date 11/12/2021 --s/p PICC line placement --UTI (urinary tract infection) Discontinue Levaquin Urine shows staph aureus resistant to Levaquin but sensitive to Bactrim and tetracycline oxacillin. -continue IV Ancef 2 g every 12 hours --History of multiple sclerosis Stable. We will continue the current home medication --Decubitus ulcer[right hip and sacral region] s/p levaquin and Vancomycin. now continue IV Ancef 2 g every 12 hours per ID Wound care evaluation. Blood culture wound culture. Recheck CBC BMP in the morning Follow wound care, surgical consult for wound debridement if needed --COVID-19 virus infection, positive on 10/14; 10/18 Isolation precautions, PPE protocols COVID precaution. Positive COVID PCR. supportive care as patient on RA --Severe protein calorie malnutrition; Nutrition supplements, nutrition consult Supportive care, treat the underlying cause of malnutrition --severe hypoalbuminemia albumin 1.6 Nutrition supplements, nutrition consult --Full code -DVT prophylaxis SCD for prophylaxis. Pepcid 20 mg IV every 12 hours for GI prophylaxis. PICC line placed, long-term IV antibiotics set up by case management Cleared by all the consultants Stable at discharge to [facility] today Daily Hospital course 10/14; follow cultures, follow wound care, consult surgeon for possible wound debridement if needed 10/15: Patient tested positive for COVID-19 yesterday. Patient spiking temp, cont vanc and levaquin. consult ID, order repeat blood cx 10/16: ordered TTE, repeat blood cx pending. supportive care for covid 19. -vancomycin d/micheline. Switched to IV Ancef 2 g every 12 hours. Continue levofloxacin for now, f/u urine culture -f/u repeat blood cultures, if positive, would probably need a PEDRITO 10/17: -continue IV Ancef 2 g every 12 hours -Continue levofloxacin, D5 of 5, f/u urine culture -f/u repeat blood cultures, if negative pt will need IV Ancef x 4 weeks ending 11/12/2021 -will need negative blood cultures at 48 hours before placing a PICC line 10/18: Placement issues, repeat COVID test is positive. blood cx from yesterday is positive. plan to order another blood cx. pt not medically clear for dc 10/19/21: blood cx from 10/12, 10/13 and 10/15 positive. Rpt blood cultures from yesterday negative at 24 h. No fever, cont iv abx and follow clinically. 10/20: blood cx from 10/18 so far neg. will wait for ID clearance to order for PICC line. cont iv abx. 10/21: blood cx from 10/18 remains -ve for 48h, order PICC line to cont IV Ancef x 4 weeks ending 11/12/2021. cont supportive care. plan to dc back to SNF with iv abx . 10/22; patient is receiving PICC line today for long-term antibiotics, DC back to SNF tomorrow Case management assisting with discharge planning 10/23; patient is being discharged to SNF today Disposition: 03 ALF FACILITY Final Discharge Diagnosis (Prints w/discharge instructions): Sepsis secondary to UTI/hip and sacral decubitus ulcers. Staff aureus bacteremia/persistent positive blood cultures. Long-term antibiotics total 4 weeks of Ancef stop date 11/12/2021. Status post PICC line placement. Urinary tract infection. History of multiple sclerosis. Sacral/right hip decubitus ulcer. Positive COVID-19. Severe protein calorie malnutrition. Severe hypoalbuminemia. Full CODE STATUS. DVT prophylaxis Time spent for discharge: 35 min Core Measure Documentation - Palliative Care Palliative Care/ Comfort Measures: Not Applicable - Core Measures Any of the following diagnoses?: none Exam - Constitutional Vitals: Temp Pulse Resp BP Pulse Ox 98.7 F 99 H 16 95/48 99 10/23/21 03:27 10/23/21 03:27 10/23/21 03:27 10/23/21 03:27 10/23/21 03:27 General appearance: Present: mild distress, cachectic, other (Contracted) - EENT Eyes: Present: PERRL, EOM intact - Neck Neck: Present: supple, normal ROM - Respiratory Respiratory effort: normal Respiratory: bilateral: diminished, negative: rales, rhonchi, wheezing - Cardiovascular Rhythm: regular Heart Sounds: Present: S1 & S2 - Extremities Extremities: no ischemia, abnormal (Contracted) - Abdominal General gastrointestinal: Present: soft, non-tender, non-distended, normal bowel sounds - Integumentary Integumentary: Present: clear, warm - Musculoskeletal Musculoskeletal: generalized weakness - Psychiatric Psychiatric: cooperative, other (Minimally communicative) - Neurologic Neurologic: moves all extremities (Contracted, encephalopathy) Plan Activity: advance as tolerated, fall precautions, other Diet: other (Mechanical soft diet, nutrition supplement Ensure Plus 1 can 3 times a day) Additional Instructions: IV Ancef 2 g every 12 hours for total 4 weeks stop date 11/12/2021[via PICC line]. Advised to follow COVID-19 isolation precautions and protocols per CDC guidelines. If you have worsening symptoms contact MD or go to the nearest emergency room. Fall precautions, aspiration precautions. Offloading/frequent turning the patient. Wound care as needed Follow up with: [facility] [Primary Care Provider] - 7 Days KEERTHI MOTT MD [Staff Physician] - 14 Days
[2021-10-23] MEDS: FAMOTIDINE 20 MG TAB PO SCH (11:11)
[2021-10-23] MEDS: ENOXAPARIN 40 MG/0.4 ML INJ SUB-Q SCH (12:11)
[2021-10-23 19:52] VITALS: BP 97/61
--- NOTE | 2021-10-23 20:34 | Progress Note ---
Assessment and Plan Assessment and plan: 45-year-old female with history of multiple sclerosis [facility] of fever and tachycardia. History of advanced multiple sclerosis and is bedbound. She has several known decubitus ulcers on her sacral region and and hip. 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 Patient has multiple decubitus ulcers on different stages. On antibiotics 10/14; follow cultures, follow wound care, consult surgeon for possible wound debridement if needed 10/15: Patient tested positive for COVID-19 yesterday. Patient spiking temp, cont vanc and levaquin. consult ID, order repeat blood cx 10/16: ordered TTE, repeat blood cx pending. supportive care for covid 19. -vancomycin d/micheline. Switched to IV Ancef 2 g every 12 hours. Continue levofloxacin for now, f/u urine culture -f/u repeat blood cultures, if positive, would probably need a PEDRITO 10/17: -continue IV Ancef 2 g every 12 hours -Continue levofloxacin, D5 of 5, f/u urine culture -f/u repeat blood cultures, if negative pt will need IV Ancef x 4 weeks ending 11/12/2021 -will need negative blood cultures at 48 hours before placing a PICC line 10/18: Placement issues, repeat COVID test is positive. blood cx from yesterday is positive. plan to order another blood cx. pt not medically clear for dc 10/19/21: blood cx from 10/12, 10/13 and 10/15 positive. Rpt blood cultures from yesterday negative at 24 h. No fever, cont iv abx and follow clinically. 10/20: blood cx from 10/18 so far neg. will wait for ID clearance to order for PICC line. cont iv abx. 10/21: blood cx from 10/18 remains -ve for 48h, order PICC line to cont IV Ancef x 4 weeks ending 11/12/2021. cont supportive care. plan to dc back to SNF with iv abx . 10/22; patient is receiving PICC line today for long-term antibiotics, DC back to SNF tomorrow Case management assisting with discharge planning 10/23; patient is hemodynamically stable for discharge to SNF today Assessment and plan: -- Sepsis probably secondary to UTI/hip and sacrum decubitus ulcers POA fever, tachycardia, hypotension , leukocytosis UTI per UA Empiric antibiotics, IV fluids, follow cultures ID consulted --Staph aureus bacteremia: with poersistent positive blood cx on 10/12, 10/13 and 10/15 Source could be her decubiti. TTE did not reveal any obvious vegetations on the valves. Showed possible PFO. last blood cx neg, need abx recommendation on discharge from ID -continue IV Ancef 2 g every 12 hours --UTI (urinary tract infection) Discontinue Levaquin Urine shows staph aureus resistant to Levaquin but sensitive to Bactrim and tetracycline oxacillin. -continue IV Ancef 2 g every 12 hours --History of multiple sclerosis Stable. We will continue the current home medication --Decubitus ulcer[right hip and sacral region] s/p levaquin and Vancomycin. now continue IV Ancef 2 g every 12 hours per ID Wound care evaluation. Blood culture wound culture. Recheck CBC BMP in the morning Follow wound care, surgical consult for wound debridement if needed --COVID-19 virus infection, positive on 10/14; 10/18 Isolation precautions, PPE protocols COVID precaution. Positive COVID PCR. supportive care as patient on RA --Severe protein calorie malnutrition; Nutrition supplements, nutrition consult Supportive care, treat the underlying cause of malnutrition --severe hypoalbuminemia albumin 1.6 Nutrition supplements, nutrition consult --Full code -DVT prophylaxis SCD for prophylaxis. Pepcid 20 mg IV every 12 hours for GI prophylaxis. PICC line being placed today, possible discharge to SNF tomorrow DC planning per case management History Interval history: Seen and examined the patient at the bedside Hospitalist Physical - Constitutional Vitals: Temp Pulse Resp BP Pulse Ox 98.4 F 86 18 97/61 100 10/23/21 19:14 10/23/21 19:14 10/23/21 19:14 10/23/21 19:14 10/23/21 19:14 General appearance: Present: mild distress, cachectic, other (Contracted) Results - Labs CBC & Chem 7: 10/20/21 06:15 10/22/21 07:12 Labs: Laboratory Last Values WBC 8.9 K/mm3 (4.5-11.0) 10/20/21 06:15 RBC 3.11 M/mm3 (3.65-5.03) L 10/20/21 06:15 Hgb 8.0 gm/dl (10.1-14.3) L 10/20/21 06:15 Hct 26.1 % (30.3-42.9) L 10/20/21 06:15 MCV 84 fl (79-97) 10/20/21 06:15 MCH 26 pg (28-32) L 10/20/21 06:15 MCHC 31 % (30-34) 10/20/21 06:15 RDW 22.5 % (13.2-15.2) H 10/20/21 06:15 Plt Count 639 K/mm3 (140-440) H 10/20/21 06:15 Lymph % (Auto) 17.1 % (13.4-35.0) 10/20/21 06:15 [place] % (Auto) 8.4 % (0.0-7.3) H 10/20/21 06:15 Eos % (Auto) 0.2 % (0.0-4.3) 10/20/21 06:15 Baso % (Auto) 0.4 % (0.0-1.8) 10/20/21 06:15 Lymph # (Auto) 1.5 K/mm3 (1.2-5.4) 10/20/21 06:15 [place] # (Auto) 0.7 K/mm3 (0.0-0.8) 10/20/21 06:15 Eos # (Auto) 0.0 K/mm3 (0.0-0.4) 10/20/21 06:15 Baso # (Auto) 0.0 K/mm3 (0.0-0.1) 10/20/21 06:15 Add Manual Diff Complete 10/19/21 06:31 Total Counted 100 10/19/21 06:31 Seg Neutrophils % 73.9 % (40.0-70.0) H 10/20/21 06:15 Seg Neuts % (Manual) 87.0 % (40.0-70.0) H 10/19/21 06:31 Band Neutrophils % 0 % 10/19/21 06:31 Lymphocytes % (Manual) 9.0 % (13.4-35.0) L 10/19/21 06:31 Reactive Lymphs % (Man) 0 % 10/19/21 06:31 Monocytes % (Manual) 4.0 % (0.0-7.3) 10/19/21 06:31 Eosinophils % (Manual) 0 % (0.0-4.3) 10/19/21 06:31 Basophils % (Manual) 0 % (0.0-1.8) 10/19/21 06:31 Metamyelocytes % 0 % 10/19/21 06:31 Myelocytes % 0 % 10/19/21 06:31 Promyelocytes % 0 % 10/19/21 06:31 Blast Cells % 0 % 10/19/21 06:31 Nucleated RBC % Not Reportable 10/19/21 06:31 Seg Neutrophils # 6.6 K/mm3 (1.8-7.7) 10/20/21 06:15 Seg Neutrophils # Man 9.1 K/mm3 (1.8-7.7) H 10/19/21 06:31 Band Neutrophils # 0.0 K/mm3 10/19/21 06:31 Lymphocytes # (Manual) 0.9 K/mm3 (1.2-5.4) L 10/19/21 06:31 Abs React Lymphs (Man) 0.0 K/mm3 10/19/21 06:31 Monocytes # (Manual) 0.4 K/mm3 (0.0-0.8) 10/19/21 06:31 Eosinophils # (Manual) 0.0 K/mm3 (0.0-0.4) 10/19/21 06:31 Basophils # (Manual) 0.0 K/mm3 (0.0-0.1) 10/19/21 06:31 Metamyelocytes # 0.0 K/mm3 10/19/21 06:31 Myelocytes # 0.0 K/mm3 10/19/21 06:31 Promyelocytes # 0.0 K/mm3 10/19/21 06:31 Blast Cells # 0.0 K/mm3 10/19/21 06:31 WBC Morphology Not Reportable 10/19/21 06:31 Hypersegmented Neuts Not Reportable 10/19/21 06:31 Hyposegmented Neuts Not Reportable 10/19/21 06:31 Hypogranular Neuts Not Reportable 10/19/21 06:31 Smudge Cells Not Reportable 10/19/21 06:31 Toxic Granulation Not Reportable 10/19/21 06:31 Toxic Vacuolation Not Reportable 10/19/21 06:31 Dohle Bodies Not Reportable 10/19/21 06:31 Pelger-Huet Anomaly Not Reportable 10/19/21 06:31 Vandana Rods Not Reportable 10/19/21 06:31 Platelet Estimate Consistent w auto 10/19/21 06:31 Clumped Platelets Not Reportable 10/19/21 06:31 Plt Clumps, EDTA Not Reportable 10/19/21 06:31 Large Platelets Not Reportable 10/19/21 06:31 Giant Platelets Not Reportable 10/19/21 06:31 Platelet Satelliting Not Reportable 10/19/21 06:31 Plt Morphology Comment Not Reportable 10/19/21 06:31 RBC Morphology Not Reportable 10/19/21 06:31 Dimorphic RBCs Not Reportable 10/19/21 06:31 Polychromasia Not Reportable 10/19/21 06:31 Hypochromasia 1+ 10/19/21 06:31 Poikilocytosis Not Reportable 10/19/21 06:31 Anisocytosis 1+ 10/19/21 06:31 Microcytosis Not Reportable 10/19/21 06:31 Macrocytosis Not Reportable 10/19/21 06:31 Spherocytes Not Reportable 10/19/21 06:31 Pappenheimer Bodies Not Reportable 10/19/21 06:31 Sickle Cells Not Reportable 10/19/21 06:31 Target Cells Rare 10/19/21 06:31 Tear Drop Cells Not Reportable 10/19/21 06:31 Ovalocytes Not Reportable 10/19/21 06:31 Helmet Cells Not Reportable 10/19/21 06:31 Masterson-Blanford Bodies Not Reportable 10/19/21 06:31 [place] Rings Not Reportable 10/19/21 06:31 [place] Cells Not Reportable 10/19/21 06:31 Bite Cells Not Reportable 10/19/21 06:31 Crenated Cell Not Reportable 10/19/21 06:31 Elliptocytes Not Reportable 10/19/21 06:31 Acanthocytes (Spur) Not Reportable 10/19/21 06:31 Rouleaux Not Reportable 10/19/21 06:31 Hemoglobin C Crystals Not Reportable 10/19/21 06:31 Schistocytes Not Reportable 10/19/21 06:31 Malaria parasites Not Reportable 10/19/21 06:31 Felix Bodies Not Reportable 10/19/21 06:31 Hem Pathologist Commnt No 10/19/21 06:31 APTT 41.0 Sec. (24.2-36.6) H 10/12/21 23:11 Fibrinogen 850 mg/dl (211-480) H 10/12/21 23:11 Sodium 140 mmol/L (137-145) 10/22/21 07:12 Potassium 3.8 mmol/L (3.6-5.0) 10/22/21 07:12 Chloride 103.7 mmol/L (98-107) 10/22/21 07:12 Carbon Dioxide 26 mmol/L (22-30) 10/22/21 07:12 Anion Gap 14 mmol/L 10/22/21 07:12 BUN 4 mg/dL (7-17) L 10/22/21 07:12 Creatinine < 0.2 mg/dL (0.6-1.2) L 10/22/21 07:12 Estimated GFR > 60 ml/min 10/22/21 07:12 BUN/Creatinine Ratio 20 % 10/22/21 07:12 Glucose 94 mg/dL (65-100) 10/22/21 07:12 POC Glucose 122 mg/dL (70-105) H 10/13/21 14:52 Lactic Acid 1.70 mmol/L (0.7-2.0) 10/12/21 23:11 Calcium 7.9 mg/dL (8.4-10.2) L 10/22/21 07:12 Total Bilirubin 0.20 mg/dL (0.1-1.2) 10/20/21 06:15 AST 14 units/L (5-40) 10/20/21 06:15 ALT 8 units/L (7-56) 10/20/21 06:15 Alkaline Phosphatase 105 units/L (35-129) 10/20/21 06:15 Total Creatine Kinase 46 units/L (30-135) 10/12/21 23:11 Total Protein 6.2 g/dL (6.3-8.2) L 10/20/21 06:15 Albumin 1.7 g/dL (3.9-5) L 10/20/21 06:15 Albumin/Globulin Ratio 0.4 % 10/20/21 06:15 Urine Color Yellow (Yellow) 10/13/21 02:33 Urine Turbidity Cloudy (Clear) 10/13/21 02:33 Urine pH 6.0 (5.0-7.0) 10/13/21 02:33 Ur Specific [place] 1.030 (1.003-1.030) 10/13/21 02:33 Urine Protein 100 mg/dl mg/dL (Negative) 10/13/21 02:33 Urine Glucose (UA) Negative mg/dL (Negative) 10/13/21 02:33 Urine Ketones Trace mg/dL (Negative) 10/13/21 02:33 Urine Blood Moderate (Negative) A 10/13/21 02:33 Urine Nitrite Positive (Negative) 10/13/21 02:33 Ur Reducing Substances Not Reportable 10/13/21 02:33 Urine Bilirubin Negative (Negative) 10/13/21 02:33 Urine Ictotest Not Reportable 10/13/21 02:33 Urine Urobilinogen 2.0 mg/dL (<2.0) 10/13/21 02:33 Ur Leukocyte Esterase Moderate (Negative) 10/13/21 02:33 Urine WBC (Auto) > 182.0 /HPF (0.0-6.0) H 10/13/21 02:33 Urine RBC (Auto) 61.0 /HPF (0.0-6.0) 10/13/21 02:33 Urine Bacteria (Auto) 4+ /HPF (Negative) 10/13/21 02:33 Urine Mucus 3+ /HPF 10/13/21 02:33 Nasal Screen MRSA (PCR) Negative (Negative) 10/14/21 08:07 Vancomycin Trough 10.3 ug/mL (5.0-20.0) 10/16/21 06:58 Coronavirus (PCR) Negative (Negative) 10/23/21 11:50 SARS-CoV-2 (PCR) Positive (Negative) A 10/18/21 11:23 Blood Type A POSITIVE 10/12/21 23:11 Antibody Screen Negative 10/12/21 23:11 Microbiology: Microbiology 10/18/21 10:38 Peripheral/Venous Blood Culture - Final NO GROWTH AFTER 5 DAYS 10/18/21 10:38 Peripheral/Venous Blood Culture - Final NO GROWTH AFTER 5 DAYS Rangel/IV: Voiding Method Indwelling Catheter Active Medications - Current Medications Current Medications: Generic Name Dose Route Start Last Admin Trade Name Freq PRN Reason Stop Dose Admin Acetaminophen 650 mg 10/13/21 04:58 10/18/21 05:14 Acetaminophen 325 Mg Tab PO 650 mg Q4H PRN Administration Pain MILD(1-3)/Fever >100.5/RICO Albuterol 2 puff 10/14/21 20:00 Albuterol 8.5 Gm Mdi Inhalation IH Q4HRT PRN Shortness Of Breath Ascorbic Acid 500 mg 10/23/21 22:00 Ascorbic Acid 500 Mg Tab PO BID MEREDITH Cholecalciferol 1,000 unit 10/24/21 10:00 Cholecalciferol (Vit D3) 1000 Unit (25 Mcg) Tab PO QDAY MEREDITH Enoxaparin Sodium 40 mg 10/13/21 10:00 10/23/21 12:11 Enoxaparin 40 Mg/0.4 Ml Inj SUB-Q 40 mg QDAY MEREDITH Administration Famotidine 20 mg 10/18/21 22:00 10/23/21 11:11 Famotidine 20 Mg Tab PO 20 mg BID MEREDITH Administration Dextrose/Sodium Chloride 1,000 mls @ 100 mls/hr 10/13/21 05:00 10/23/21 03:01 D5/0.45ns IV 100 mls/hr DIRECT MEREDITH Administration Cefazolin Sodium 2 gm/ Sodium 100 mls @ 200 mls/hr 10/16/21 12:00 10/23/21 14:12 Chloride IV 11/14/21 12:29 200 mls/hr Q12H MEREDITH Administration Protocol Morphine Sulfate 2 mg 10/13/21 04:58 Morphine 2 Mg/1 Ml Inj IV Q4H PRN Pain, Moderate (4-6) Morphine Sulfate 4 mg 10/13/21 04:58 Morphine 4 Mg/1 Ml Inj IV Q4H PRN Pain , Severe (7-10) Ondansetron HCl 4 mg 10/13/21 04:58 Ondansetron 4 Mg/2 Ml Inj IV Q8H PRN Nausea And Vomiting Sodium Chloride 10 ml 10/13/21 10:00 10/23/21 11:12 Sodium Chloride 0.9% 10 Ml Flush Syringe IV 10 ml BID MEREDITH Administration Sodium Chloride 10 ml 10/13/21 04:58 Sodium Chloride 0.9% 10 Ml Flush Syringe IV PRN PRN LINE FLUSH Zinc Sulfate 220 mg 10/23/21 22:00 Zinc Sulfate 220 Mg Cap PO BID [facility] Nutrition/Malnutrition Assess - Dietary Evaluation Nutrition/Malnutrition Findings: Nutrition Notes Start: 10/13/21 10:06 Freq: Status: Active Protocol: Document 10/21/21 11:35 TRINH (Rec: 10/21/21 12:14 TRINH [id number]) Nutrition Notes Initial or Follow up Reassessment Current Diagnosis Decubitus(Pressure Ulcer), Sepsis,Malnutrition Other Pertinent Diagnosis UTI, Bacteremia, COVID-19, Hypoalbuminemia, MS. Current Diet Mechanical Soft -Ground Meats- Diet+ D Suppl (since D 10/16) . Labs/Tests 10/21: K 3.2, BUN 5, Crea <0.2 , Ca 8.1. Pertinent Medications 10/21: D5/0.45ns @ 100ml/hr, others nutritionally unremarkable. Height 5 ft 8 in Weight 44.7 kg [place] Body Weight (kg) 63.63 BMI 15.0 Weight change and time frame 0.659 Kg body weight loss in 1 week reported. Subjective/Other Information RD consult for routine F/U on dietary advancement. Diet advanced to Mechanical Soft, Pt's PO intake of meals has been Fair (>50%) and fairly tolerated, according to ADL notes. AGRICULTURE PROFESSOR note on 10/17/21 16:12: Services have been discontinued as the patient is safe for a mechanical soft diet with ground meats. - END OF NOTE. Pt is on Room Air, O2 saturation @ 100%, according to Physical Assessment History notes. Pt remains incontinent , according to Physical Assessment History notes. Percent of energy/protein needs met: Prescribed Mechanical Soft - Ground Meats- Diet provides for energy/protein needs (2, 048 Kcal/97 g) during LOS.; additionally, Dietary Supplements will compensate for possible poor or insufficient PO intake of meals with 1,050 Kcal and 60 g of protein. Burn Absent Trauma Absent GI Symptoms Other Difficulty In Swallowing,Chewing Food Allergy No Skin Integrity/Comment Multiple decubitus ulcers present Current % PO Fair (50-74%) Minimum of two criteria Yes Energy Intake (severe) < or equal to 50% Estimated Energy Requirement > or equal to 5 days Interpretation of Weight Loss (severe) > 20% in 1 year Body Fat Depletion Moderate depletion (severe) Muscle Mass Moderate Depletion (severe) Fluid Accumulation N/A Reduced Water Leak Repairer Strength Measurably Reduced (severe) Protein-Calorie Malnutrition Severe #4 Nutrition Diagnosis Inadequate protein-energy intake Comments: Pt's PO intake of meals has been Fair (>50%) and fairly tolerated, according to ADL notes. Diagnosis Progress(for reassessment Improved documentation) #3 Nutrition Diagnosis Increased nutrient needs ( specify in comment below) Comments: Protein to support wound healing processes. Diagnosis Progress(for reassessment Continues documentation) #2 Nutrition Diagnosis Malnutrition Diagnosis Progress(for reassessment Continues documentation) #1 Nutrition Diagnosis Underweight Comments: 0.659 Kg body weight loss in 1 week reported. Diagnosis Progress(for reassessment Continues documentation) Is patient on ventilator? No Is Patient Ambulatory and/or Out of Bed No REE-([place]-[facility] Jewv-confined to bed) 1384.188 Kcal/Kg value to use for calculation 41 Approximate Energy Requirements Using 1833 kcal/Kg Calculation Used for Recommendations Kcal/kg Additional Notes Protein: 1.2-1.5 g/Kg ABW; 54- 68 g/day. Fluids: 1 ml/Kcal, or as per MD. Nutrition Intervention Change Diet Order: Continue Mechanical Soft - Ground Meats- Diet as tolerated. Add Supplement/Snack (indicate name/kcal Continue 8 fl oz Ensure Enlive /protein ) ; TID. Provides kCal: 1,050 Provides Protein (gm) 60 Goal #1 Compensate, through dietary supplementation, for possible poor or insufficient PO intake of meals during LOS. Goal #2 Support, through dietary supplementation, wound healing processes during LOS. Goal #3 Facilitate PO intake of meals with elemental, textural, or mechanical modification during LOS. Goal #4 Adjust the dietary intervention to better serve Pt's needs and clinical conditions during LOS. Follow-Up By: 10/28/21 Additional Comments Continue monitoring food tolerance, %PO intake of meals , dietary supplements, and BM.
[2021-10-23] MEDS ORDERED: ASCORBIC ACID 500 MG TAB PO SCH (22:00)
[2021-10-23] MEDS ORDERED: ZINC SULFATE 220 MG CAP PO SCH (22:00)
[2021-10-24] MEDS ORDERED: CHOLECALCIFEROL (VIT D3) 1000 UNIT (25 mcg) TAB PO SCH (10:00)
== END 2021-10-23 19:00 | DRG 871 ==
LOC: ED 21:11 → 3A 10-13 09:51
PROVIDERS: ADMIT Hospitalist; ATTEND Internal Medicine
PROC: 02HV33Z Insertion of Infusion Device into Superior Vena Cava, Percutaneous Approach (ICD-10-PCS; principal; 2021-10-22)
PROC: B548ZZA Ultrasonography of Superior Vena Cava, Guidance (ICD-10-PCS; 2021-10-22)
DX: A41.01 Sepsis due to Methicillin susceptible Staphylococcus aureus (principal); U07.1 COVID-19; E43 Unspecified severe protein-calorie malnutrition; N39.0 Urinary tract infection, site not specified; G35 Multiple sclerosis; L89.219 Pressure ulcer of right hip, unspecified stage; L89.159 Pressure ulcer of sacral region, unspecified stage; Z88.0 Allergy status to penicillin; Z74.01 Bed confinement status; Z68.1 Body mass index [BMI] 19.9 or less, adult; Z88.8 Allergy status to other drugs, medicaments and biological substances
CPT/HCPCS: 36415; 71045; 80048; 80053; 80202; 81001; 82140; 82550; 82962; 85007; 85025; 85384; 85730; 86850; 86900; 86901; 87040; 87076; 87086; 87186; 87641; 93005; 93306; 94640; 94644; G0378; J3490; J7070; C8929; J0690; J1650; J1956; J3370; J7030; J7050; U0003